=== PATIENT | male | born 1935 | race Caucasian/White ===

== ENCOUNTER 2018-02-20 10:53 | Inpatient (IN) ==
--- NOTE | 2018-02-20 11:19 | ED ---
HPI General Chief Complaint: Shortness of Breath/Dyspnea Stated Complaint: sob Time Seen by Provider: 02/20/18 11:07 Source: patient Mode of arrival: ambulatory Limitations: no limitations History of Present Illness The patient is a 82-year-old male who presents to the emergency department for cough and cold symptoms of 4 days duration. The patient has a history of sinusitis and has been recently treated for sinusitis with over-the- counter medications. However, the patient states for the last 3-4 days his symptoms have progressed. He now complains of a productive cough producing green sputum, shortness of breath, chest congestion, and chest tightness. The patient has had subjective fevers, took Advil prior to arrival. The patient denies any chronic medical problems and is followed by his primary physician at the [place] [facility]. The patient did recently travel to [place] and back over the but denies any known history of pulmonary embolism, DVT, or significant lower extremity edema. Patient denies any known history of A. fib, COPD, or CHF. The patient quit smoking 40 years ago and is an avid runner. Symptoms are moderate and progressive. Patient does complain of mild facial congestion over the sinuses which is chronic for him as well as postnasal drip. MD Complaint: Reports shortness of breath Onset (ago): day(s) Context: Reports recent illness Severity: moderate Consistency/Duration: progressively worsening Relieving factors: nothing Exacerbating factors: exertion and coughing Associated symptoms: Reports chest pain, cough, sputum production and chest congestion Treatment prior to arrival: Reports none Related Data Home oxygen amount: none Home Medications Medication Instructions Recorded Confirmed fluticasone [Flonase Allergy 0 puff INTRANASAL WEEKLY PRN 02/20/18 02/20/18 Relief] ipratropium bromide 2 spray INTRANASAL BID 02/20/18 02/20/18 ipratropium bromide [Atrovent HFA] 1 puff INHALATION Q6H 02/20/18 02/20/18 Allergies Allergy/AdvReac Type Severity Reaction Status Date / Time No Known Allergies Allergy Verified 02/20/18 10:55 Review of Systems ROS: all other systems reviewed are negative [facility] Medical History Medical History Sinusitis (Acute) Surgical History Surgical History H/O knee surgery (Acute) H/O submucous nasal surgery (Acute) History of abdominal surgery (Acute) History of nasal septoplasty (Acute) Family History Family History Other Family history non-contributory Social History Social History Substance History: No History of Abuse Second Hand Smoke Exposure: No Smoking Status: Former smoker Tobacco Type: Cigarettes How Often Do You Have a Drink Containing Alcohol: 2 to 4 times a month Recent Travel in [facility] within the Last 8 Weeks: Yes Recent Out of Country Travel within the Last 8 Weeks: No Exam Narrative Exam Narrative: GENERAL: Awake, alert, pleasant 82-year-old male who appears his stated age and is in no acute respiratory distress. SKIN: Focused skin assessment warm/dry. HEAD: Atraumatic. Normocephalic. EYES: Pupils equal and round. No scleral icterus. No injection or drainage. ENT: No nasal bleeding or discharge. Mucous membranes pink and moist. Cobblestoning in the posterior oropharynx. No significant tenderness of the maxillary or frontal sinuses. NECK: Trachea midline. No JVD. CARDIOVASCULAR: Irregularly irregular with a heart rate in the 120s. RESPIRATORY: No accessory muscle use. Diffuse wheezing noted. GASTROINTESTINAL: Abdomen soft, non-tender, nondistended. MUSCULOSKELETAL: No obvious deformities. No clubbing. No cyanosis. No edema. NEUROLOGICAL: Awake and alert. No obvious cranial nerve deficits. Motor grossly within normal limits. Normal speech. PSYCHIATRIC: Appropriate mood and affect; insight and judgment normal. Course Initial Documented Vital Signs Temperature 97.9 F 02/20/18 10:55 Pulse Rate 134 H 02/20/18 10:55 Respiratory Rate 24 02/20/18 10:55 Blood Pressure 115/69 02/20/18 10:55 Pulse Oximetry 95 02/20/18 10:55 Last Documented Vital Signs Temperature 99 F 02/20/18 20:00 Pulse Rate 85 02/20/18 20:00 Respiratory Rate 20 02/20/18 20:00 Blood Pressure 118/59 L 02/20/18 20:00 Pulse Oximetry 93 L 02/20/18 20:00 Medical Decision Making [facility] Narrative Medical decision making narrative: IV was established, labs are drawn and sent, and the patient was placed on cardiac telemetry monitoring and continuous pulse oximetry monitoring. EKG was ordered and interpreted. Chest x-ray was obtained. D-dimer, lactic acid, CPK, and troponin were sent to lab. The patient was administered 1 DuoNeb. Chest x-ray reveals bilateral pneumonia. D- dimer was positive at 1.4, therefore, CT pulmonary angiogram was ordered, revealing bilateral pneumonia and the patient was treated with Rocephin and Zithromax for community-acquired pneumonia. CT pulmonary angiogram did not reveal any evidence of pulmonary embolism. The patient does have new onset atrial fibrillation with RVR and bilateral pneumonia, therefore, will be admitted. The patient may benefit from IV antibiotics and echocardiogram with considerations for anticoagulation including aspirin or the novel oral anticoagulants. I discussed the findings with the patient who is comfortable with this plan of care and disposition. The patient[facility] primary [facility] at [facility] Medical Screen Exam Complete: Yes Emergency Medical Condition: Yes Lab Data Lab results reviewed: Yes I reviewed the patient's lab results. Result diagrams: 02/20/18 11:20 02/20/18 11:20 Lab Results 02/20/18 02/20/18 02/20/18 Range/Units 11:20 11:20 11:20 CBC w Diff Auto diff final WBC 10.5 (4.0-11.0) th/mm3 RBC 4.24 L (4.50-5.90) mil/mm3 Hgb 13.5 (13.0-17.0) gm/dL Hct 39.9 (39.0-51.0) % MCV 94.3 (80.0-100.0) fL MCH 31.8 (27.0-34.0) pg MCHC 33.7 (32.0-36.0) % RDW 12.8 (11.6-17.2) % Plt Count 244 (150-450) th/mm3 MPV 11.7 H (7.0-11.0) fL Neut % (Auto) 81.9 H (16.0-70.0) % Lymph % (Auto) 6.2 L (9.0-44.0) % Walker % (Auto) 11.1 H (0.0-8.0) % Eos % (Auto) 0.4 (0.0-4.0) % Baso % (Auto) 0.4 (0.0-2.0) % Neut # (Auto) 8.6 H (1.8-7.7) th/mm3 Lymph # (Auto) 0.7 L (1.0-4.8) th/mm3 Walker # (Auto) 1.2 H (0.0-0.9) th/mm3 Eos # (Auto) 0.0 (0.0-0.4) th/mm3 Baso # (Auto) 0.0 (0.0-0.2) th/mm3 WBC Differential . Differential Comment . PT 9.8 (9.8-11.6) sec INR 1.0 Ratio APTT 32.3 H (23.4-31.7) sec D-Dimer Quant (PE/DVT) 1.40 H (0.00-0.50) mg/L FEU Sodium 138 (136-145) meq/L Potassium 3.5 (3.5-5.1) meq/L Chloride 102 (98-107) meq/L Carbon Dioxide 27.2 (21.0-32.0) meq/L Anion Gap 9 (5-15) meq/L BUN 13 (7-18) mg/dL Creatinine 1.40 H (0.60-1.30) mg/dL Estimated GFR 48 L (>89) mL/min Random Glucose 140 H (74-106) mg/dL Lactic Acid (0.4-2.0) mmol/L Calcium 8.9 (8.5-10.1) mg/dL Magnesium 2.0 (1.5-2.5) mg/dL Total Bilirubin 1.1 H (0.2-1.0) mg/dL AST 33 (15-37) U/L ALT 37 (12-78) U/L Alkaline Phosphatase 72 (45-117) U/L Total Creatine Kinase 166 (39-308) U/L CK-MB (CK-2) 5.0 H (0.5-3.6) ng/mL Troponin I Less than 0.02 L (0.02-0.05) ng/mL B-Natriuretic Peptide (0-100) pg/mL Total Protein 7.3 (6.4-8.2) g/dL Albumin 3.0 L (3.4-5.0) g/dL TSH (0.358-3.740) uIU/mL Urine Color (Yellw/Straw) Urine Clarity (Clear) Urine pH (5.0-8.5) Ur Specific Polk (1.002-1.035) Urine Protein (Neg-Trace) mg/dL Urine Glucose (UA) (Negative) mg/dL Urine Ketones (Negative) mg/dL Urine Occult Blood (Negative) Urine Nitrate (Negative) Urine Bilirubin (Negative) Urine Urobilinogen (Less than 2) mg/dL Ur Leukocyte Esterase (Negative) Urine RBC (0-3) /hpf Urine WBC (0-5) /hpf Ur Squamous Epith Cells (0-5) /hpf Amorphous Sediment (None) /hpf Urine Bacteria (None) /hpf Hyaline Casts (0-3) /lpf Granular Casts (None) /lpf Micro UA Comment Ur Microscopic Review Urine Culture Comments 02/20/18 02/20/18 02/20/18 Range/Units 11:20 11:20 11:20 CBC w Diff WBC (4.0-11.0) th/mm3 RBC (4.50-5.90) mil/mm3 Hgb (13.0-17.0) gm/dL Hct (39.0-51.0) % MCV (80.0-100.0) fL MCH (27.0-34.0) pg MCHC (32.0-36.0) % RDW (11.6-17.2) % Plt Count (150-450) th/mm3 MPV (7.0-11.0) fL Neut % (Auto) (16.0-70.0) % Lymph % (Auto) (9.0-44.0) % Walker % (Auto) (0.0-8.0) % Eos % (Auto) (0.0-4.0) % Baso % (Auto) (0.0-2.0) % Neut # (Auto) (1.8-7.7) th/mm3 Lymph # (Auto) (1.0-4.8) th/mm3 Walker # (Auto) (0.0-0.9) th/mm3 Eos # (Auto) (0.0-0.4) th/mm3 Baso # (Auto) (0.0-0.2) th/mm3 WBC Differential Differential Comment PT (9.8-11.6) sec INR Ratio APTT (23.4-31.7) sec D-Dimer Quant (PE/DVT) (0.00-0.50) mg/L FEU Sodium (136-145) meq/L Potassium (3.5-5.1) meq/L Chloride (98-107) meq/L Carbon Dioxide (21.0-32.0) meq/L Anion Gap (5-15) meq/L BUN (7-18) mg/dL Creatinine (0.60-1.30) mg/dL Estimated GFR (>89) mL/min Random Glucose (74-106) mg/dL Lactic Acid 2.0 (0.4-2.0) mmol/L Calcium (8.5-10.1) mg/dL Magnesium (1.5-2.5) mg/dL Total Bilirubin (0.2-1.0) mg/dL AST (15-37) U/L ALT (12-78) U/L Alkaline Phosphatase (45-117) U/L Total Creatine Kinase (39-308) U/L CK-MB (CK-2) (0.5-3.6) ng/mL Troponin I (0.02-0.05) ng/mL B-Natriuretic Peptide 95 (0-100) pg/mL Total Protein (6.4-8.2) g/dL Albumin (3.4-5.0) g/dL TSH 2.210 (0.358-3.740) uIU/mL Urine Color (Yellw/Straw) Urine Clarity (Clear) Urine pH (5.0-8.5) Ur Specific Polk (1.002-1.035) Urine Protein (Neg-Trace) mg/dL Urine Glucose (UA) (Negative) mg/dL Urine Ketones (Negative) mg/dL Urine Occult Blood (Negative) Urine Nitrate (Negative) Urine Bilirubin (Negative) Urine Urobilinogen (Less than 2) mg/dL Ur Leukocyte Esterase (Negative) Urine RBC (0-3) /hpf Urine WBC (0-5) /hpf Ur Squamous Epith Cells (0-5) /hpf Amorphous Sediment (None) /hpf Urine Bacteria (None) /hpf Hyaline Casts (0-3) /lpf Granular Casts (None) /lpf Micro UA Comment Ur Microscopic Review Urine Culture Comments 02/20/18 Range/Units 18:02 CBC w Diff WBC (4.0-11.0) th/mm3 RBC (4.50-5.90) mil/mm3 Hgb (13.0-17.0) gm/dL Hct (39.0-51.0) % MCV (80.0-100.0) fL MCH (27.0-34.0) pg MCHC (32.0-36.0) % RDW (11.6-17.2) % Plt Count (150-450) th/mm3 MPV (7.0-11.0) fL Neut % (Auto) (16.0-70.0) % Lymph % (Auto) (9.0-44.0) % Walker % (Auto) (0.0-8.0) % Eos % (Auto) (0.0-4.0) % Baso % (Auto) (0.0-2.0) % Neut # (Auto) (1.8-7.7) th/mm3 Lymph # (Auto) (1.0-4.8) th/mm3 Walker # (Auto) (0.0-0.9) th/mm3 Eos # (Auto) (0.0-0.4) th/mm3 Baso # (Auto) (0.0-0.2) th/mm3 WBC Differential Differential Comment PT (9.8-11.6) sec INR Ratio APTT (23.4-31.7) sec D-Dimer Quant (PE/DVT) (0.00-0.50) mg/L FEU Sodium (136-145) meq/L Potassium (3.5-5.1) meq/L Chloride (98-107) meq/L Carbon Dioxide (21.0-32.0) meq/L Anion Gap (5-15) meq/L BUN (7-18) mg/dL Creatinine (0.60-1.30) mg/dL Estimated GFR (>89) mL/min Random Glucose (74-106) mg/dL Lactic Acid (0.4-2.0) mmol/L Calcium (8.5-10.1) mg/dL Magnesium (1.5-2.5) mg/dL Total Bilirubin (0.2-1.0) mg/dL AST (15-37) U/L ALT (12-78) U/L Alkaline Phosphatase (45-117) U/L Total Creatine Kinase (39-308) U/L CK-MB (CK-2) (0.5-3.6) ng/mL Troponin I (0.02-0.05) ng/mL B-Natriuretic Peptide (0-100) pg/mL Total Protein (6.4-8.2) g/dL Albumin (3.4-5.0) g/dL TSH (0.358-3.740) uIU/mL Urine Color [facility] (Yellw/Straw) Urine Clarity Cloudy H (Clear) Urine pH 5.5 (5.0-8.5) Ur Specific Polk Less/equal 1.005 (1.002-1.035) Urine Protein 100 H (Neg-Trace) mg/dL Urine Glucose (UA) Negative (Negative) mg/dL Urine Ketones 15 H (Negative) mg/dL Urine Occult Blood Trace (Negative) Urine Nitrate Negative (Negative) Urine Bilirubin Negative (Negative) Urine Urobilinogen 0.2 (Less than 2) mg/dL Ur Leukocyte Esterase Negative (Negative) Urine RBC 0-3 (0-3) /hpf Urine WBC 6-8 H (0-5) /hpf Ur Squamous Epith Cells Greater than 10 H (0-5) /hpf Amorphous Sediment Moderate H (None) /hpf Urine Bacteria Occasional H (None) /hpf Hyaline Casts 0-3 (0-3) /lpf Granular Casts 1-3 H (None) /lpf Micro UA Comment Culture not ind Ur Microscopic Review Microscopic reviewed Urine Culture Comments Culture not ind Imaging Data Radiologist's impression: Chest X-Ray 02/20/18 11:14 CONCLUSION: Patchy bilateral interstitial infiltrates in both lower lung suggestive of pneumonia. Chest CTA 02/20/18 12:28 CONCLUSION: 1. No evidence of pulmonary embolism. 2. Focal alveolar consolidations are noted involving the lingula of the left upper lobe as well as the right middle lobe consistent with probable pneumonia. Scattered reticular nodular infiltrates are also noted throughout the upper lobes bilaterally. Minimal scattered reticular nodular infiltrates are also noted within the posterior aspects of the lower lobes. 3. Bronchiectasis is noted bilaterally. 4. Coronary artery calcifications. 5. Degenerative changes are noted throughout the thoracic spine. ECG Data EKG Prior to Arrival: No Attestation: I personally reviewed and interpreted this ECG as follows: Interpretation: EKG reveals atrial fibrillation with RVR, rate 110. RSR prime in V1 with QRS of 95 ms consistent with incomplete right bundle branch block. Nonspecific ST changes. Inverted T wave in lead III. Discharge Plan Discharge Disposition Patient Disposition: 30 Still Patient Discharge Details Diagnosis: Community acquired pneumonia, Atrial fibrillation with RVR Physicians Team ED Provider: Israel Cantu Primary Care Provider: [facility],Physician 's Attending Provider: Jas Tom Other Providers: Raimundo Holguin Status ED Status: Left Department Discharge Information Discharge Date/Time: 02/20/18 15:26
[2018-02-20 12:17] LABS: Chloride 102 meq/L (98-107); Potassium 3.5 meq/L (3.5-5.1); Sodium 138 meq/L (136-145)
[2018-02-20 12:18] LABS: Baso % (Auto) 0.4 % (0.0-2.0); Eos % (Auto) 0.4 % (0.0-4.0); Hematocrit 39.9 % (39.0-51.0); Hemoglobin 13.5 gm/dL (13.0-17.0); Lymph # (Auto) 0.7 th/mm3 (1.0-4.8); Lymph % (Auto) 6.2 % (9.0-44.0); Mean Corpuscular HGB Conc 33.7 % (32.0-36.0); Mean Corpuscular Hemoglobin 31.8 pg (27.0-34.0); Mean Corpuscular Volume 94.3 fL (80.0-100.0); Mean Platelet Volume 11.7 fL (7.0-11.0); Mono # (Auto) 1.2 th/mm3 (0.0-0.9); Mono % (Auto) 11.1 % (0.0-8.0); Neut # (Auto) 8.6 th/mm3 (1.8-7.7); Neut % (Auto) 81.9 % (16.0-70.0); Platelet Count 244 th/mm3 (150-450); Red Blood Count 4.24 mil/mm3 (4.50-5.90); Red Cell Distribution Width 12.8 % (11.6-17.2); White Blood Count 10.5 th/mm3 (4.0-11.0)
--- NOTE | 2018-02-20 12:19 | XR ---
EXAM DATE: 02/20/2018 12:14 PM EST AGE/SEX: 82 years / Male INDICATIONS: Cough, short of breath CLINICAL DATA: This is the patient's initial encounter. Patient reports that signs and symptoms have been present for 4 - 6 days and indicates a pain score of 8/10. MEDICAL/SURGICAL HISTORY: None. None. COMPARISON: No prior exams available for comparison. FINDINGS: There is some patchy interstitial infiltrates in both lower lungs. The upper lungs are grossly clear. The heart size is enlarged but stable. There are no effusions or pulmonary edema. The bony structure s are grossly intact. CONCLUSION: Patchy bilateral interstitial infiltrates in both lower lung suggestive of pneumonia. Electronically signed by: Tang Smith MD 02/20/2018 12:17 PM EST
[2018-02-20] MEDS ORDERED: Azithromycin Inj 500 MG in Sodium Chlor 0.9% Inj 250 ML IV.SIG ONE (12:20)
[2018-02-20 12:21] LABS: Anion Gap 9 meq/L (5-15); Blood Urea Nitrogen 13 mg/dL (7-18); Calcium 8.9 mg/dL (8.5-10.1); Carbon Dioxide 27.2 meq/L (21.0-32.0); Glucose,Random 140 mg/dL (74-106)
[2018-02-20 12:22] LABS: Activated Partial Thrombo Time 32.3 sec (23.4-31.7); Prothrombin Time 9.8 sec (9.8-11.6)
[2018-02-20 12:24] LABS: Alanine Aminotransferase 37 U/L (12-78); Aspartate Aminotransferase 33 U/L (15-37); Glomerular Filtration Rate 48 mL/min (>89)
[2018-02-20 12:25] LABS: D-Dimer 1.4 mg/L FEU (0.00-0.50)
[2018-02-20 12:26] LABS: Total Protein 7.3 g/dL (6.4-8.2)
[2018-02-20 12:27] LABS: Alkaline Phosphatase 72 U/L (45-117); Creatine Kinase 166 U/L (39-308)
--- NOTE | 2018-02-20 13:55 | CT ---
EXAM DATE: 02/20/2018 1:48 PM EST AGE/SEX: 82 years / Male INDICATIONS: Short of breath. CLINICAL DATA: This is the patient's initial encounter. Patient reports that signs and symptoms have been present for 4 - 6 days and indicates a pain score of 0/10. MEDICAL/SURGICAL HISTORY: None. . Knee surgery. nasal surgery. Abdomen surgery. RADIATION DOSE: 13.41 CTDI (mGy) COMPARISON: No prior exams available for comparison. TECHNIQUE: Volumetric scanning was performed using a multi-row detector CT scanner during bolus infu freddy of 65 ml Omnipaque 350 (iohexol) nonionic water-soluble contrast as a single exam dose. The brett a was post processed with a variety of visualization algorithms including full volume maximum intensi ty projection and sliding thin slab reformation. Using automated exposure control and adjustment of t he mA and/or kV according to patient size, radiation dose was kept as low as reasonably achievable to obtain optimal diagnostic quality images. DICOM format image data is available electronically for r eview and comparison. FINDINGS: Pulmonary Arteries: No filling defects are seen in the pulmonary arteries out to the subsegmental ve ssels. The left and right pulmonary arteries are normal in diameter. Lung: Focal alveolar consolidations are noted involving the lingula of the left upper lobe as well a s the right middle lobe consistent with probable pneumonia. Scattered reticular nodular infiltrates a re also noted throughout the upper lobes bilaterally. Minimal scattered reticular nodular infiltrates are also noted within the posterior aspects of the lower lobes. Bronchiectasis is noted bilaterally. No pulmonary mass or nodule is noted. Mediastinum: No evidence of mediastinal or hilar adenopathy. Coronary artery calcifications are note d. Other: The axilla is unremarkable. Degenerative changes are noted throughout the thoracic spine. CONCLUSION: 1. No evidence of pulmonary embolism. 2. Focal alveolar consolidations are noted involving the lingula of the left upper lobe as well as t he right middle lobe consistent with probable pneumonia. Scattered reticular nodular infiltrates are also noted throughout the upper lobes bilaterally. Minimal scattered reticular nodular infiltrates ar e also noted within the posterior aspects of the lower lobes. 3. Bronchiectasis is noted bilaterally. 4. Coronary artery calcifications. 5. Degenerative changes are noted throughout the thoracic spine. Electronically signed by: Jas Robb MD 02/20/2018 1:53 PM EST
--- NOTE | 2018-02-20 15:18 | P.HP ---
History of Present Illness Primary Care Physician: [facility] Chief Complaint: Upper respiratory complaints History of Present Illness: This is an 82-year-old male patient with a known medical history of sinusitis who presented to the ED with complaints of upper respiratory symptoms including worsening cold symptoms, including shortness of breath with cough, green phlegm and chest tightness over the past 3 days. Patient states he has had subjective fevers at home and took Advil prior to arrival. It should be noted that he tok a recent trip to [place] over the and states he may have caught something from the airplane. He denies any history of atrial fibrillation, COPD, CHF, pulmonary embolism or DVT. Prior to this cold he is very healthy, an avid runner, and denies any significant medical problems except for sinus problems including a history of septoplasty. At the time of assessment patient is awake and alert, states he feels mildly improved, but still complains of continued cough with green phlegm and shortness of breath with exertion. He also states that he is developed cold sores on his upper and lower lip, does admit to having these in the past although has not had an outbreak for a while. On exam patient is in a regular rate. We will continue cardiac telemetry overnight. - Diagnosis (1) Bilateral pneumonia (2) Community acquired pneumonia (3) Atrial fibrillation with RVR Inpatient Certification: I certify that the inpatient services were ordered in accordance with Medicare regulations governing the order. This includes certification that hospital inpatient services are reasonable and necessary and in the case of services not specified as inpatient-only under 42 CFR 419.22(n), that they are appropriately provided as inpatient services in accordance to with the 2-midnight benchmark under 43 CFR 412.3(e) Estimated Total Length of Stay (Days): 3 Review of Systems All other systems reviewed negative except as stated in HPI PMFSH - History History Provided By: Patient - Medical History Medical History: Medical History (Last Reviewed 02/20/18 @ 16:42 by Bhargavi Rainey) Sinusitis - Surgical History Surgical History: Surgical History (Last Updated 02/20/18 @ 16:43 by Bhargavi Rainey) H/O knee surgery H/O submucous nasal surgery History of abdominal surgery History of nasal septoplasty - Family History Family History: Family History (Last Updated 02/20/18 @ 16:43 by Bhargavi Rainey) Other Family history non-contributory - Social History I have reviewed the patient's Social History: Yes - Tobacco History Second Hand Smoke Exposure: No Tobacco Use In Past 30 Days: No Smoking Status: Former smoker Tobacco Type: Cigarettes - Alcohol History How Often Do You Have a Drink Containing Alcohol: 2 to 4 times a month - Travel History Recent Travel in the [place] Within the Last 8 Weeks: Yes Recent Travel Out of the Country Within the Last 8 Weeks: No - Immunization History Tetanus Immunization: <5 Years Medications and Allergies Allergies Allergy/AdvReac Type Severity Reaction Status Date / Time No Known Allergies Allergy Verified 02/20/18 10:55 Home Medications Medication Instructions Recorded Confirmed Type fluticasone [Flonase Allergy 0 puff INTRANASAL WEEKLY PRN 02/20/18 02/20/18 History Relief] ipratropium bromide 2 spray INTRANASAL BID 02/20/18 02/20/18 History ipratropium bromide [Atrovent HFA] 1 puff INHALATION Q6H 02/20/18 02/20/18 History Exam Vital signs: Vital Signs 02/20/18 10:55 02/20/18 11:13 02/20/18 11:14 Temperature 97.9 F Pulse Rate 134 H 115 H Respiratory Rate 24 20 Blood Pressure 115/69 Pulse Oximetry 95 95 95 02/20/18 11:27 02/20/18 12:02 02/20/18 13:31 Temperature 99 F Pulse Rate 105 H 104 H 109 H Respiratory Rate 20 22 18 Blood Pressure 108/65 107/69 Pulse Oximetry 97 97 02/20/18 15:10 Temperature Pulse Rate 84 Respiratory Rate 22 Blood Pressure 121/74 Pulse Oximetry 96 Intake & Output 02/19/18 02/20/18 02/20/18 18:59 06:59 18:59 Intake Total 350 / 350 Balance 350 / 350 Weight 73.7 kg Intake: IV 350 / 350 Azithromycin Inj 500 MG In NS 250 / 250 Inj 250 ML @ 250 mls/hr IV.SIG ONCE ONE Rx#:[id number] Rocephin Inj 1,000 MG In NS Inj 100 / 100 100 ML @ 200 mls/hr IV.SIG ONCE ONE Rx#:[id number] Narrative: GENERAL: Well-developed, well-nourished patient in NAD. SKIN: Cool and dry. No rash. HEAD: Normocephalic. Atraumatic. EYES: Pupils equal and round. No scleral icterus. No injection or drainage. ENT: No nasal bleeding or discharge. Mucous membranes pink and moist. NECK: Supple. Trachea midline. CARDIOVASCULAR: Regular rate and rhythm. S1, S2 noted. No murmur appreciated. RESPIRATORY: Diffuse rhonchi especially in the posterior lower bases. Breath sounds equal bilaterally. GASTROINTESTINAL: Abdomen soft, non-tender, nondistended. Normoactive bowel sounds x4. MUSCULOSKELETAL: No obvious deformities. Extremities without clubbing, cyanosis , or edema. NEUROLOGICAL: Awake and alert. No obvious cranial nerve deficits. Motor grossly within normal limits. 5/5 muscle strength in bilateral upper and lower extremities. Normal speech. PSYCHIATRIC: Appropriate mood and affect; insight and judgment normal. Results - Labs CBC & Chem 7: 02/20/18 11:20 02/20/18 11:20 Labs: Laboratory Results - last 24 hr 02/20/18 02/20/18 02/20/18 11:20 11:20 11:20 CBC w Diff Auto diff final WBC 10.5 RBC 4.24 L Hgb 13.5 Hct 39.9 MCV 94.3 MCH 31.8 MCHC 33.7 RDW 12.8 Plt Count 244 MPV 11.7 H Neut % (Auto) 81.9 H Lymph % (Auto) 6.2 L Whiteside % (Auto) 11.1 H Eos % (Auto) 0.4 Baso % (Auto) 0.4 Neut # (Auto) 8.6 H Lymph # (Auto) 0.7 L Whiteside # (Auto) 1.2 H Eos # (Auto) 0.0 Baso # (Auto) 0.0 WBC Differential . Differential Comment . PT 9.8 INR 1.0 APTT 32.3 H D-Dimer Quant (PE/DVT) 1.40 H Sodium 138 Potassium 3.5 Chloride 102 Carbon Dioxide 27.2 Anion Gap 9 BUN 13 Creatinine 1.40 H Estimated GFR 48 L Random Glucose 140 H Lactic Acid Calcium 8.9 Magnesium 2.0 Total Bilirubin 1.1 H AST 33 ALT 37 Alkaline Phosphatase 72 Total Creatine Kinase 166 CK-MB (CK-2) 5.0 H Troponin I Less than 0.02 L B-Natriuretic Peptide Total Protein 7.3 Albumin 3.0 L 02/20/18 02/20/18 11:20 11:20 CBC w Diff WBC RBC Hgb Hct MCV MCH MCHC RDW Plt Count MPV Neut % (Auto) Lymph % (Auto) Whiteside % (Auto) Eos % (Auto) Baso % (Auto) Neut # (Auto) Lymph # (Auto) Whiteside # (Auto) Eos # (Auto) Baso # (Auto) WBC Differential Differential Comment PT INR APTT D-Dimer Quant (PE/DVT) Sodium Potassium Chloride Carbon Dioxide Anion Gap BUN Creatinine Estimated GFR Random Glucose Lactic Acid 2.0 Calcium Magnesium Total Bilirubin AST ALT Alkaline Phosphatase Total Creatine Kinase CK-MB (CK-2) Troponin I B-Natriuretic Peptide 95 Total Protein Albumin - Imaging Impressions Chest X-Ray 02/20/18 11:14 CONCLUSION: Patchy bilateral interstitial infiltrates in both lower lung suggestive of pneumonia. Chest CTA 02/20/18 12:28 CONCLUSION: 1. No evidence of pulmonary embolism. 2. Focal alveolar consolidations are noted involving the lingula of the left upper lobe as well as the right middle lobe consistent with probable pneumonia. Scattered reticular nodular infiltrates are also noted throughout the upper lobes bilaterally. Minimal scattered reticular nodular infiltrates are also noted within the posterior aspects of the lower lobes. 3. Bronchiectasis is noted bilaterally. 4. Coronary artery calcifications. 5. Degenerative changes are noted throughout the thoracic spine. Caprini VTE Risk Assessment Caprini VTE Risk Assessment: Moderate/High Risk (score >= 2) Caprini Risk Assessment Model: Point Value = 1 Point Value = 2 Point Value = 3 Point Value = 5 Age 41-60 Minor surgery BMI > 25 kg/m2 Swollen legs Varicose veins or History of unexplained or recurrent spontaneous Oral contraceptives or hormone replacement Sepsis (< 1 month) Serious lung disease, including pneumonia (< 1 month) Abnormal pulmonary function Acute myocardial infarction Congestive heart failure (< 1 month) History of inflammatory bowel disease Medical patient at bed rest Age 61-74 Arthroscopic surgery Major open surgery (> 45 min) Laparoscopic surgery (> 45 min) Malignancy Confined to bed (> 72 hours) Immobilizing plaster cast Central venous access Age >= 75 History of VTE Family history of VTE Factor V Leiden Prothrombin [id number] Lupus anticoagulant Anticardiolipin antibodies Elevated serum homocysteine Heparin-induced thrombocytopenia Other congenital or acquired thrombophilia Stroke (< 1 month) Elective arthroplasty Hip, pelvis, or leg fracture Acute spinal cord injury (< 1 month) Prophylaxis Regimen: Total Risk Factor Score Risk Level Prophylaxis Regimen 0-1 Low Early ambulation 2 Moderate Order ONE of the following: *Sequential Compression Device (SCD) *Heparin 5000 units SQ BID 3-4 Higher Order ONE of the following medications: *Heparin 5000 units SQ TID *Enoxaparin/Lovenox 40 mg SQ daily (WT < 150 kg, CrCl > 30 mL/min) *Enoxaparin/Lovenox 30 mg SQ daily (WT < 150 kg, CrCl > 10-29 mL/min) *Enoxaparin/Lovenox 30 mg SQ BID (WT < 150 kg, CrCl > 30 mL/min) AND/OR *Sequential Compression Device (SCD) 5 or more Highest Order ONE of the following medications: *Heparin 5000 units SQ TID (Preferred with Epidurals) *Enoxaparin/Lovenox 40 mg SQ daily (WT < 150 kg, CrCl > 30 mL/min) *Enoxaparin/Lovenox 30 mg SQ daily (WT < 150 kg, CrCl > 10-29 mL/min) *Enoxaparin/Lovenox 30 mg SQ BID (WT < 150 kg, CrCl > 30 mL/min) AND *Sequential Compression Device (SCD) Assessment and Plan - Assessment (1) Bilateral pneumonia Code(s): J18.9 - Pneumonia, unspecified organism Status: Acute (2) Community acquired pneumonia Code(s): J18.9 - Pneumonia, unspecified organism Status: Acute (3) Atrial fibrillation with RVR Code(s): I48.91 - Unspecified atrial fibrillation Status: Acute - Plan This is an 82-year-old male patient who presented to the ED with: Community-acquired bilateral pneumonia -Patient reports worsening cold symptoms including increasing subjective fevers , generalized weakness, productive cough with green phlegm and shortness of breath. -CBC with white blood cell 10.5. No fever since presentation. Lactic acid 2.0. Monitor for infection. -A chest CT was done secondary to elevated d-dimer, reviewed showing bilateral pneumonia. Ruled out PE. -Was given IV ceftriaxone and azithromycin in ED. Will continue. -Blood cultures pending, follow. -Check UA and legionella. Follow. -Will redraw labs in AM. Follow. -PT evaluation ordered and pending. -Supplemental O2 as needed, comfortable on RA. -Duonebs scheduled and as needed. Add incentive spirometry. -Supportive care. Paroxysmal atrial fibrillation, new onset, likely secondary to acute infection -EKG reviewed showing Atrial fibrillation in RVR. Currently in NSR on assessment and on monitor. -Patient denies ever having atrial fibrillation in the past. -This paroxysmal response is likely related to the acute bilateral pneumonia infection. -Spoke to patient at length regarding the risks and benefits of anticoagulation. Patient's CHADSVAS is a 2. -Requesting to get cardiology input regarding anticoagulation. Will request cardiology input, recommendations pending. -Continue to monitor overnight on telemetry. 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 -Acyclovir ointment ordered. -Assess response. DVT Prophylaxis: SCDs, Heparin. (2) Community acquired pneumonia Qualifiers: Laterality: unspecified laterality Qualified Code(s): J18.9 - Pneumonia, unspecified organism
[2018-02-20] MEDS ORDERED: Bisacodyl 10 MG Supp RECTAL PRN (16:34)
[2018-02-20] MEDS ORDERED: Acetaminophen 325 MG Tablet PO PRN (16:34)
[2018-02-20] MEDS: Sod Chloride 0.9% Inj 1,000 ML IV.CONT SCH (16:50)
[2018-02-20] MEDS: Tiotropium Bromide 18 MCG/ACT Inhaler INH SCH (17:18)
[2018-02-20] MEDS ORDERED: Heparin - SQ 10,000 UNITS/ML Vial SQ SCH (18:00)
[2018-02-20 18:17] LABS: Bilirubin,Urine Negative (Negative); Clarity,Urine Cloudy (Clear); Glucose,Urine (UA) Negative (Negative); Leukocyte Esterase,Urine Negative (Negative); Nitrite,Urine Negative (Negative); PH,Urine 5.5 (5.0-8.5); Specific Gravity,Urine Less/Equal 1.005 (1.002-1.035); Urobilinogen,Urine 0.2 mg/dL (Less than 2)
[2018-02-20 18:18] LABS: Color,Urine Orange (Yellw/Straw)
[2018-02-20 18:20] LABS: RBC,Urine 0-3 /hpf (0-3)
[2018-02-20 18:21] LABS: Amorphous Sediment,Urine Moderate /hpf; Bacteria,Urine Occasional /hpf; Hyaline Casts,Urine 0-3 /lpf (0-3); Squamous Epithelial Cell,Urine Greater than 10 /hpf (0-5)
[2018-02-20] MEDS: guaiFENesin 600 MG ER Tablet PO SCH (20:16)
--- NOTE | 2018-02-20 21:33 | MB ---
cc: Raimundo Holguin MD DATE: 02/20/2018 HISTORY OF PRESENT ILLNESS: Alden is a very pleasant 81-year-old gentleman followed at the [facility], who presented with weakness, fatigue, fever and dyspnea and found to have bilateral pneumonia. He otherwise denies any fevers, chills, cough, GI or bleeding, PND, orthopnea, syncope, or dizziness. PAST MEDICAL HISTORY: As per history of present illness. He has a history of sinusitis, knee surgery, submucosal nasal surgery, abdominal surgery, nasal septoplasty. ALLERGIES: NONE. SOCIAL HISTORY: Former smoker. Drinks alcohol 3-4 times a month. MEDICATIONS: In the hospital: 1. Eliquis 5 mg p.o. b.i.d. 2. Azithromycin IV. 3. Ceftriaxone IV. 4. Fluticasone daily per each naris. 5. Guaifenesin 600 b.i.d. 6. Heparin 5000 subcutaneous every 8 hours. 7. Spiriva 18 mcg inhaler. PHYSICAL EXAMINATION: VITAL SIGNS: Temperature 97.3, pulse 81, ranging between 81 and 109, respiratory rate 20, saturations 92% on room air, blood pressure 130/78. GENERAL: He is alert and oriented x 3, in no acute distress. NECK: Supple. No JVD. No bruit. CARDIOVASCULAR: S1, S2. No murmurs, rubs or gallops. LUNGS: Clear to auscultation bilaterally. ABDOMEN: Soft, nontender, nondistended with positive bowel sounds. EXTREMITIES: Lower extremity edema. RADIOLOGY DATA: Chest x-ray is notable for decreased air movement bilaterally at the bases. Chest x-ray shows patchy bilateral interstitial infiltrates in both lower lung suggestive of pneumonia. EKG shows atrial fibrillation at a rate of 111 beats per minute. Repeat EKG shows sinus bradycardia. CT of the chest: No evidence of pulmonary embolism. Focal alveolar consolidations are noted involving the lingula of the left upper lobe as well as the right middle lobe consistent with probable pneumonia. Scattered reticular nodular infiltrates are also noted throughout the upper lobes bilaterally, minimal scattered reticular nodular infiltrates are also noted within the posterior aspects of the lower lobes. bronchiectasis is noted bilaterally coronary artery calcifications degenerative changes are noted throughout the thoracic spine. LABORATORY DATA: Blood cultures are pending. White count 10.5, hemoglobin 13.5, hematocrit 39.9, platelet count is 244. INR is 1.0. Sodium 138, potassium 3.5, chloride 102, bicarbonate 27.2, BUN 13, creatinine 1.40. Troponin less than 0.02. BNP is 95. Total bilirubin is 1.1. TSH is 2.210. DIAGNOSES: 1. Paroxysmal atrial fibrillation. 2. Pneumonia. 3. Acute renal failure. 4. Coronary artery disease. DISCUSSION: The patient's CHADS-VASc score is at least 2. I agree with Eliquis 5 mg b.i.d. I have explained to the patient that an oral anticoagulant agent or Coumadin is indicated. The patient agrees and is willing to take Eliquis 5 mg b.i.d. Denies any history of bleeding or CVA in the past. He is currently bradycardic in sinus rhythm; therefore, we will hold beta blockers or calcium channel blockers. We will discontinue the subcutaneous heparin and follow up with 2-D echo. Regarding his coronary calcifications, I also recommend checking a lipid panel and starting him on a statin if the LDL is above 70. MD TERRA Kenney/javier , 09:00 PM , 09:10 PM
[2018-02-21] MEDS: Sod Chloride 0.9% Inj 1,000 ML IV.CONT SCH ×3 (02:30→22:17)
[2018-02-21 06:06] LABS: Baso % (Auto) 0.3 % (0.0-2.0); Eos # (Auto) 0.1 th/mm3 (0.0-0.4); Hematocrit 33.2 % (39.0-51.0); Hemoglobin 11.3 gm/dL (13.0-17.0); Lymph # (Auto) 1.3 th/mm3 (1.0-4.8); Lymph % (Auto) 13.7 % (9.0-44.0); Mean Corpuscular HGB Conc 34.1 % (32.0-36.0); Mean Corpuscular Volume 93.9 fL (80.0-100.0); Mean Platelet Volume 10.4 fL (7.0-11.0); Mono # (Auto) 1.2 th/mm3 (0.0-0.9); Mono % (Auto) 12.7 % (0.0-8.0); Neut # (Auto) 6.8 th/mm3 (1.8-7.7); Neut % (Auto) 72.3 % (16.0-70.0); Platelet Count 209 th/mm3 (150-450); Red Blood Count 3.54 mil/mm3 (4.50-5.90); Red Cell Distribution Width 13.2 % (11.6-17.2); White Blood Count 9.4 th/mm3 (4.0-11.0)
[2018-02-21 06:23] LABS: Potassium 3.3 meq/L (3.5-5.1)
[2018-02-21 06:27] LABS: Calcium 8.4 mg/dL (8.5-10.1)
[2018-02-21 06:28] LABS: Carbon Dioxide 27.1 meq/L (21.0-32.0)
--- NOTE | 2018-02-21 08:07 | P.PNIM ---
Subjective Interval history: Follow-up bilateral pneumonia and new onset atrial fibrillation. Patient seen and examined, sitting comfortably in no apparent distress. No acute events overnight. He is doing well breathing well. Awaiting echocardiogram and lipid panel today. Eating well without any nausea or vomiting. Vital signs stable. Requesting to speak with CM about prices for anticoagulant on DC. Consulted. Physical Exam Vital signs: Vital Signs 02/20/18 10:55 02/20/18 11:13 02/20/18 11:14 Temperature 97.9 F Pulse Rate 134 H 115 H Respiratory Rate 24 20 Blood Pressure 115/69 Pulse Oximetry 95 95 95 02/20/18 11:27 02/20/18 12:02 02/20/18 13:31 Temperature 99 F Pulse Rate 105 H 104 H 109 H Respiratory Rate 20 22 18 Blood Pressure 108/65 107/69 Pulse Oximetry 97 97 02/20/18 15:10 02/20/18 16:46 02/20/18 19:29 Temperature 97.3 F L Pulse Rate 84 87 81 Respiratory Rate 22 18 20 Blood Pressure 121/74 138/78 Pulse Oximetry 96 95 92 L 02/20/18 20:00 02/21/18 00:00 02/21/18 04:00 Temperature 99 F 99.6 F 98.2 F Pulse Rate 85 78 71 Respiratory Rate 20 20 20 Blood Pressure 118/59 L 116/62 125/70 Pulse Oximetry 93 L 93 L 93 L 02/21/18 07:36 02/21/18 07:37 Temperature Pulse Rate 67 Respiratory Rate 20 Blood Pressure Pulse Oximetry 95 Intake & Output 02/20/18 02/21/18 02/21/18 18:59 06:59 18:59 Intake Total 590 / 590 1240 / 1240 Output Total 1050 / 1050 Balance 590 / 590 190 / 190 Weight 73.7 kg 74.2 kg Intake: IV 350 / 350 1000 / 1000 NS Inj 1,000 ML @ 100 mls/hr IV 1000 / 1000 .CONT .Q10H VIVIANA Rx#:[id number] Azithromycin Inj 500 MG In NS 250 / 250 Inj 250 ML @ 250 mls/hr IV.SIG ONCE ONE Rx#:[id number] Rocephin Inj 1,000 MG In NS Inj 100 / 100 100 ML @ 200 mls/hr IV.SIG ONCE ONE Rx#:[id number] Oral 240 / 240 240 / 240 Output: Urine 1050 / 1050 Narrative: GENERAL: Well-developed, well-nourished patient in NAD. SKIN: Cool and dry. No rash. HEAD: Normocephalic. Atraumatic. EYES: Pupils equal and round. No scleral icterus. No injection or drainage. ENT: No nasal bleeding or discharge. Mucous membranes pink and moist. NECK: Supple. Trachea midline. CARDIOVASCULAR: Regular rate and rhythm. S1, S2 noted. No murmur appreciated. RESPIRATORY: Lung sounds improved today, lower bases with rhonchi noted. Breath sounds equal bilaterally. GASTROINTESTINAL: Abdomen soft, non-tender, nondistended. Normoactive bowel sounds x4. MUSCULOSKELETAL: No obvious deformities. Extremities without clubbing, cyanosis , or edema. NEUROLOGICAL: Awake and alert. No obvious cranial nerve deficits. Motor grossly within normal limits. 5/5 muscle strength in bilateral upper and lower extremities. Normal speech. PSYCHIATRIC: Appropriate mood and affect; insight and judgment normal. Results - Labs CBC & Chem 7: 02/21/18 04:50 02/21/18 04:50 Laboratory Results - last 24 hr 02/20/18 02/20/18 02/20/18 11:20 11:20 11:20 CBC w Diff Auto diff final WBC 10.5 RBC 4.24 L Hgb 13.5 Hct 39.9 MCV 94.3 MCH 31.8 MCHC 33.7 RDW 12.8 Plt Count 244 MPV 11.7 H Neut % (Auto) 81.9 H Lymph % (Auto) 6.2 L Jerome % (Auto) 11.1 H Eos % (Auto) 0.4 Baso % (Auto) 0.4 Neut # (Auto) 8.6 H Lymph # (Auto) 0.7 L Jerome # (Auto) 1.2 H Eos # (Auto) 0.0 Baso # (Auto) 0.0 WBC Differential . Differential Comment . PT 9.8 INR 1.0 APTT 32.3 H D-Dimer Quant (PE/DVT) 1.40 H Sodium 138 Potassium 3.5 Chloride 102 Carbon Dioxide 27.2 Anion Gap 9 BUN 13 Creatinine 1.40 H Estimated GFR 48 L Random Glucose 140 H Lactic Acid Calcium 8.9 Magnesium 2.0 Total Bilirubin 1.1 H AST 33 ALT 37 Alkaline Phosphatase 72 Total Creatine Kinase 166 CK-MB (CK-2) 5.0 H Troponin I Less than 0.02 L B-Natriuretic Peptide Total Protein 7.3 Albumin 3.0 L TSH Urine Color Urine Clarity Urine pH Ur Specific [place] Urine Protein Urine Glucose (UA) Urine Ketones Urine Occult Blood Urine Nitrate Urine Bilirubin Urine Urobilinogen Ur Leukocyte Esterase Urine RBC Urine WBC Ur Squamous Epith Cells Amorphous Sediment Urine Bacteria Hyaline Casts Granular Casts Micro UA Comment Ur Microscopic Review Urine Culture Comments 02/20/18 02/20/18 02/20/18 11:20 11:20 11:20 CBC w Diff WBC RBC Hgb Hct MCV MCH MCHC RDW Plt Count MPV Neut % (Auto) Lymph % (Auto) Jerome % (Auto) Eos % (Auto) Baso % (Auto) Neut # (Auto) Lymph # (Auto) Jerome # (Auto) Eos # (Auto) Baso # (Auto) WBC Differential Differential Comment PT INR APTT D-Dimer Quant (PE/DVT) Sodium Potassium Chloride Carbon Dioxide Anion Gap BUN Creatinine Estimated GFR Random Glucose Lactic Acid 2.0 Calcium Magnesium Total Bilirubin AST ALT Alkaline Phosphatase Total Creatine Kinase CK-MB (CK-2) Troponin I B-Natriuretic Peptide 95 Total Protein Albumin TSH 2.210 Urine Color Urine Clarity Urine pH Ur Specific [place] Urine Protein Urine Glucose (UA) Urine Ketones Urine Occult Blood Urine Nitrate Urine Bilirubin Urine Urobilinogen Ur Leukocyte Esterase Urine RBC Urine WBC Ur Squamous Epith Cells Amorphous Sediment Urine Bacteria Hyaline Casts Granular Casts Micro UA Comment Ur Microscopic Review Urine Culture Comments 02/20/18 02/21/18 02/21/18 18:02 04:50 04:50 CBC w Diff Auto diff final WBC 9.4 RBC 3.54 L Hgb 11.3 L D Hct 33.2 L MCV 93.9 MCH 32.0 MCHC 34.1 RDW 13.2 Plt Count 209 MPV 10.4 Neut % (Auto) 72.3 H Lymph % (Auto) 13.7 Jerome % (Auto) 12.7 H Eos % (Auto) 1.0 Baso % (Auto) 0.3 Neut # (Auto) 6.8 Lymph # (Auto) 1.3 Jerome # (Auto) 1.2 H Eos # (Auto) 0.1 Baso # (Auto) 0.0 WBC Differential . Differential Comment . PT INR APTT D-Dimer Quant (PE/DVT) Sodium 139 Potassium 3.3 L Chloride 105 Carbon Dioxide 27.1 Anion Gap 7 BUN 13 Creatinine 1.20 Estimated GFR 58 L Random Glucose 107 H Lactic Acid Calcium 8.4 L Magnesium Total Bilirubin AST ALT Alkaline Phosphatase Total Creatine Kinase CK-MB (CK-2) Troponin I B-Natriuretic Peptide Total Protein Albumin TSH Urine Color [place] H Urine Clarity Cloudy H Urine pH 5.5 Ur Specific [place] Less/equal 1.005 Urine Protein 100 H Urine Glucose (UA) Negative Urine Ketones 15 H Urine Occult Blood Trace Urine Nitrate Negative Urine Bilirubin Negative Urine Urobilinogen 0.2 Ur Leukocyte Esterase Negative Urine RBC 0-3 Urine WBC 6-8 H Ur Squamous Epith Cells Greater than 10 H Amorphous Sediment Moderate H Urine Bacteria Occasional H Hyaline Casts 0-3 Granular Casts 1-3 H Micro UA Comment Culture not ind Ur Microscopic Review Microscopic reviewed Urine Culture Comments Culture not ind Microbiology 02/20/18 11:35 Nasal Wash Influenza Types A,B Antigen - Final Negative for FLU A and B antigen Infection due to influenza A or B cannot be ruled out since the antigen present in the sample may be below the detection limit of the test. - Imaging Impressions Chest X-Ray 02/20/18 11:14 CONCLUSION: Patchy bilateral interstitial infiltrates in both lower lung suggestive of pneumonia. Chest CTA 02/20/18 12:28 CONCLUSION: 1. No evidence of pulmonary embolism. 2. Focal alveolar consolidations are noted involving the lingula of the left upper lobe as well as the right middle lobe consistent with probable pneumonia. Scattered reticular nodular infiltrates are also noted throughout the upper lobes bilaterally. Minimal scattered reticular nodular infiltrates are also noted within the posterior aspects of the lower lobes. 3. Bronchiectasis is noted bilaterally. 4. Coronary artery calcifications. 5. Degenerative changes are noted throughout the thoracic spine. Assessment and Plan - Assessment (1) Bilateral pneumonia Code(s): J18.9 - Pneumonia, unspecified organism Status: Acute (2) Community acquired pneumonia Code(s): J18.9 - Pneumonia, unspecified organism Status: Acute (3) Atrial fibrillation with RVR Code(s): I48.91 - Unspecified atrial fibrillation Status: Acute - Plan This is an 82-year-old male patient who presented to the ED with: Community-acquired bilateral pneumonia -Patient reports worsening cold symptoms including increasing subjective fevers , generalized weakness, productive cough with green phlegm and shortness of breath. Improving. No fever overnight. -CBC with white blood cell 10.5. No fever since presentation. Lactic acid 2.0. Monitor for infection. -A chest CTA was done secondary to elevated d-dimer, reviewed showing bilateral pneumonia. Ruled out PE. -Was given IV ceftriaxone and azithromycin in ED. Will continue. -Blood cultures pending, follow. -UA negative. Legionella pending. Follow. -PT evaluation ordered and pending. -Supplemental O2 as needed, comfortable on RA. -Duonebs scheduled and as needed. Add incentive spirometry. -Supportive care. Paroxysmal atrial fibrillation, new onset, likely secondary to acute infection -EKG reviewed showing Atrial fibrillation in RVR. Currently in NSR on assessment and on monitor. -Patient denies ever having atrial fibrillation in the past. -This paroxysmal response is likely related to the acute bilateral pneumonia infection. -Spoke to patient at length regarding the risks and benefits of anticoagulation. Patient's CHADSVAS is a 2. -Requesting to get cardiology input regarding anticoagulation. Appreciate input. Added Eliquis. Check lipid panel and awaiting echo. -Continue to monitor overnight on telemetry. No arrhythmias noted. 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 -Acyclovir ointment ordered. -Assess response. Improved today. DVT Prophylaxis: David Blackburn. Discharge Planning: Awaiting clinical improvement, will benefit from one more day of antibiotics. (2) Community acquired pneumonia Qualifiers: Laterality: unspecified laterality Qualified Code(s): J18.9 - Pneumonia, unspecified organism
[2018-02-21] MEDS: Tiotropium Bromide 18 MCG/ACT Inhaler INH SCH (09:00)
[2018-02-21] MEDS: guaiFENesin 600 MG ER Tablet PO SCH ×2 (09:00→22:14)
[2018-02-21 10:45] LABS: Chol/HDL Ratio 2.7 Ratio; HDL Cholesterol 45.4 mg/dL (40.0-60.0)
--- NOTE | 2018-02-21 10:50 | ECHRPT ---
Indication: Heart Failure CONCLUSIONS Normal left ventricular size. Wall thickness is measured at the upper limits of normal. The left ventricular systolic function is normal with an estimated ejection fraction in the range of 55-60%. No regional wall motion abnormalities are present. Trace mitral valve regurgitation. Moderate mitral annular calcification. Trileaflet aortic valve. Trace aortic valve regurgitation. There is mild tricuspid valve regurgitation. The estimated pulmonary arterial pressure is 46 mmHg. BP: / HR: Rhythm: MEASUREMENTS (Male / Female) Normal Values Technical Quality:Fair 2D ECHO LV Diastolic Diameter PLAX 4.0 cm 4.2 - 5.9 / 3.9 - 5.3 cm LV Systolic Diameter PLAX 2.8 cm IVS Diastolic Thickness 1.2 cm 0.6 - 1.0 / 0.6 - 0.9 cm LVPW Diastolic Thickness 1.2 cm 0.6 - 1.0 / 0.6 - 0.9 cm LV Relative Wall Thickness 0.6 RV Internal Dim ED PLAX 2.9 cm LVOT Diameter 2.1 cm Aortic Root Diameter 3.3 cm LA Systolic Diameter LX 3.7 cm 3.0 - 4.0 / 2.7 - 3.8 cm M-MODE AV Cusp Separation MM 2.3 cm DOPPLER AV Peak Velocity 156.0 cm/s AV Peak Gradient 9.7 mmHg AI Peak Velocity 373.0 cm/s AI Peak Gradient 55.7 mmHg AI Pressure Half Time 813.0 ms LVOT Peak Velocity 122.0 cm/s LVOT Peak Gradient 6.0 mmHg AV Area Cont Eq pk 2.7 cm Mitral E Point Velocity 68.1 cm/s Mitral A Point Velocity 63.2 cm/s Mitral E to A Ratio 1.1 LV E' Lateral Velocity 8.5 cm/s Mitral E to LV E' Lateral Ratio 8.0 LV E' Septal Velocity 10.5 cm/s Mitral E to LV E' Septal Ratio 6.5 TR Peak Velocity 299.0 cm/s TR Peak Gradient 35.8 mmHg Right Atrial Pressure 10.0 mmHg Pulmonary Artery Systolic Pressu 45.8 mmHg Right Ventricular Systolic Press 45.8 mmHg FINDINGS LEFT VENTRICLE Normal left ventricular size. Wall thickness is measured at the upper limits of normal. The left ventricular systolic function is normal with an estimated ejection fraction in the range of 55-60%. No regional wall motion abnormalities are present. RIGHT VENTRICLE Normal right ventricular size and systolic function. LEFT ATRIUM The left atrial size is normal. RIGHT ATRIUM The right atrial size is normal. ATRIAL SEPTUM Normal atrial septal thickness without atrial level shunting by limited color doppler interrogation. AORTA The aortic root and proximal ascending aorta are normal in size on limited imaging. MITRAL VALVE Trace mitral valve regurgitation. Moderate mitral annular calcification. AORTIC VALVE Trileaflet aortic valve. Trace aortic valve regurgitation. TRICUSPID VALVE There is mild tricuspid valve regurgitation. The estimated pulmonary arterial pressure is 46 mmHg. PULMONARY VALVE No pulmonary valve regurgitation or stenosis. VESSELS The inferior vena cava is normal in size. PERICARDIUM No pericardial effusion. Nathan Ramirez MD (Electronically Signed) Final Date:21 February 2018 10:49
[2018-02-21] MEDS: Azithromycin Inj 500 MG in Sodium Chlor 0.9% Inj 250 ML IV.SIG SCH (12:09)
[2018-02-21] MEDS ORDERED: guaiFENesin/Dextromethorphan 200 MG/20 MG 10 ML UDC PO PRN (12:44)
--- NOTE | 2018-02-21 19:46 | ECG ---
Date Performed: 02/20/2018 Time Performed: 11:23:16 PTAGE: 82 years EKG: ATRIAL FIBRILLATION WITH RAPID VENTRICULAR RESPONSE INCOMPLETE RIGHT BUNDLE BRANCH BLOCK OH NIMAL ST DEPRESSION ABNORMAL RHYTHM ECG PREVIOUS TRACING : 04/24/1997 11.27 Compared to previous tracing, the patient has converted to atrial fibrillation With rapid ventricular response DOCTOR: Noe Whitfield Interpretating Date/Time 02/21/2018 19:45:49
[2018-02-22 06:51] LABS: Potassium 3.6 meq/L (3.5-5.1)
[2018-02-22 06:56] LABS: Calcium 8.5 mg/dL (8.5-10.1); Carbon Dioxide 27.3 meq/L (21.0-32.0)
[2018-02-22] MEDS: Sod Chloride 0.9% Inj 1,000 ML IV.CONT SCH (08:18)
[2018-02-22] MEDS: Tiotropium Bromide 18 MCG/ACT Inhaler INH SCH (08:34)
[2018-02-22] MEDS: guaiFENesin 600 MG ER Tablet PO SCH (08:34)
[2018-02-22] MEDS: Azithromycin Inj 500 MG in Sodium Chlor 0.9% Inj 250 ML IV.SIG SCH (12:36)
[2018-02-22 13:42] VITALS: BP 142/75; TEMP 97.4; O2SAT 95
[2018-02-22 14:01] VITALS: PULSE 76; RESP 18
--- NOTE | 2018-02-22 14:44 | P.DCO ---
- Diagnosis (1) Atrial fibrillation with RVR Status: Acute (2) Bilateral pneumonia Status: Acute - Physical Therapy Order: Evaluate and treat, Improve ambulation, Strength and gait training - Home Health Nursing Order: Medical education, Signs/symptoms of disease process, Nursing assessment with vital signs - Case Management Consult Case Management Consult-Home Health: Yes - Certification I have seen patient Alden Cruz on 02/22/18. My clinical findings support the need for the requested home health care services because: Deconditioned with increased weakness I certify that my clinical findings support that this patient is homebound because: Unsteady gait/balance
--- NOTE | 2018-02-22 17:01 | P.DS ---
Date of admission: 02/20/18 14:16 Primary care physician: [facility] Attending physician on discharge: Deneen Lozano Anticipated date of discharge: 02/22/18 Brief History from admission: This is an 82-year-old male patient with a known medical history of sinusitis who presented to the ED with complaints of upper respiratory symptoms including worsening cold symptoms, including shortness of breath with cough, green phlegm and chest tightness over the past 3 days. Patient states he has had subjective fevers at home and took Advil prior to arrival. It should be noted that he tok a recent trip to [place] over the and states he may have caught something from the airplane. He denies any history of atrial fibrillation, COPD, CHF, pulmonary embolism or DVT. Prior to this cold he is very healthy, an avid runner, and denies any significant medical problems except for sinus problems including a history of septoplasty. At the time of assessment patient is awake and alert, states he feels mildly improved, but still complains of continued cough with green phlegm and shortness of breath with exertion. He also states that he is developed cold sores on his upper and lower lip, does admit to having these in the past although has not had an outbreak for a while. On exam patient is in a regular rate. We will continue cardiac telemetry overnight. DS: Diagnosis - Discharge Diagnosis (1) Atrial fibrillation with RVR Status: Acute (2) Bilateral pneumonia Status: Acute DS: Medications - Discharge Medications Prescriptions: apixaban [Eliquis] 5 mg PO BID #60 tab azithromycin [Zithromax] 500 mg PO DAILY #5 tab cefuroxime axetil 500 mg PO Q12H #14 tab guaifenesin [Mucinex] 600 mg PO BID #20 tab ipratropium-albuterol 1 amp NEB Q6HR WHILE AWAKE NEB #1 box tiotropium bromide [Spiriva with HandiHaler] 18 mcg INH DAILY #1 inh DS: Summary Hospital Course: 82-year-old male who originally presented to the hospital because of respiratory symptoms including worsening cold symptoms, shortness of breath, phlegm production, weakness. Patient had workup done in emergency department and found to have bilateral community acquired pneumonia, proximal atrial fibrillation. Patient was admitted to the hospital with appropriate antibiotics to include Rocephin, Zithromax. Influenza testing was negative, sputum culture shows heavy growth of normal respiratory viky, Legionella was negative, blood cultures negative for 2 days. Patient did tolerate treatment well. He was started on Mucinex with appropriate response with expectorating mucus. His breathing is much improved. States that he is feeling better. Patient was found to have paroxysmal atrial fibrillation. Patient did undergo cardiac workup with cardiac enzymes which were unremarkable, echocardiogram which did not indicate any valvular issues. [employer] evaluated the patient and recommended that since the patient's chads score is 2. Agree with Eliquis. Patient did have a lipid panel performed which his LDL was below 70 not requiring any statin at this time. Patient is clinically improved. He is feeling much better. Physical therapy does not recommend any rehab facility. He does indicate possible short-term home health care with physical therapy. Case management consulted to arrange home health care. We will plan discharge once arrangements made by case management. - Time Spent with Patient Total time spent providing and/or coordinating discharge services: Greater than 30 minutes - Quality: VTE Deep Vein Thrombosis/Pulmonary Embolism Present on Admission: No Exam Vital signs: Vital Signs 02/21/18 19:00 02/21/18 19:35 02/21/18 20:00 Temperature 98.5 F Pulse Rate 81 81 61 Respiratory Rate 18 18 Blood Pressure 149/76 H Pulse Oximetry 95 02/22/18 00:03 02/22/18 04:09 02/22/18 07:35 Temperature 98.5 F 97.9 F Pulse Rate 76 67 76 Respiratory Rate 18 18 20 Blood Pressure 166/82 H 128/67 Pulse Oximetry 96 02/22/18 08:00 02/22/18 09:32 02/22/18 12:00 Temperature 98.6 F Pulse Rate 86 80 69 Respiratory Rate 18 Blood Pressure 155/70 H Pulse Oximetry 93 L 02/22/18 13:41 02/22/18 13:58 Temperature 97.4 F L Pulse Rate 72 76 Respiratory Rate 20 18 Blood Pressure 142/75 H Pulse Oximetry 95 Intake & Output 02/21/18 02/22/18 02/22/18 18:59 06:59 18:59 Intake Total 1590 / 1590 1240 / 1240 1950 / 1950 Output Total 550 / 550 600 / 600 325 / 325 Balance 1040 / 1040 640 / 640 1625 / 1625 Weight 78.2 kg Intake: IV 1350 / 1350 1000 / 1000 1950 / 1950 NS Inj 1,000 ML @ 100 mls/hr IV 1000 / 1000 1000 / 1000 1600 / 1600 .CONT .Q10H VIVIANA Rx#:[id number] Azithromycin Inj 500 MG In NS 250 / 250 250 / 250 Inj 250 ML @ 250 mls/hr IV.SIG Q24H VIVIANA Rx#:[id number] Rocephin Inj 1,000 MG In NS Inj 100 / 100 100 / 100 100 ML @ 200 mls/hr IV.SIG Q24H VIVIANA Rx#:[id number] Oral 240 / 240 240 / 240 Output: Urine 550 / 550 600 / 600 325 / 325 Other: # Voids 2 Date of Last Bowel Movement 02/22/18 Narrative: GENERAL: Well-developed, well-nourished, in no acute distress. alert and orientated HEENT: Head is normocephalic without any lesions or masses noted. Facial features are symmetric. Eyes: Extraocular muscles are intact. Conjunctivae were clear. NECK: Supple without any masses. Trachea midline no deviation. No JVD, CARDIAC: Irregular rhythm, irregular rate. S1/S2 are heard. No murmurs gallops or rubs. LUNGS: Clear to auscultation bilaterally. No wheeze, rhonchi or rales. No use of accessory muscles on inspiration or expiration. ABDOMEN: Soft, nontender. Nondistended. Bowel sounds heard in all 4 quadrants. No organomegaly or masses. Negative rebound, negative guarding EXTREMITIES: No edema, pulses are equal bilaterally. No cyanosis or clubbing NEUROLOGY: Mood and affect appear appropriate. Cranial nerves II through XII grossly intact. Moving all extremities, speech is clear Results Procedures completed during hospitalization: ECHOCARDIOGRAM CONCLUSIONS Normal left ventricular size. Wall thickness is measured at the upper limits of normal. The left ventricular systolic function is normal with an estimated ejection fraction in the range of 55-60%. No regional wall motion abnormalities are present. Trace mitral valve regurgitation. Moderate mitral annular calcification. Trileaflet aortic valve. Trace aortic valve regurgitation. There is mild tricuspid valve regurgitation. The estimated pulmonary arterial pressure is 46 mmHg. Labs on day of discharge: Labs from last 24 hours 02/22/18 05:50 Sodium 143 Potassium 3.6 Chloride 109 H Carbon Dioxide 27.3 Anion Gap 7 BUN 8 Creatinine 0.95 Estimated GFR 76 L Random Glucose 94 Calcium 8.5 Preliminary micro results at discharge 02/20/18 11:30 Aerobic Blood Culture - Preliminary Blood - Peripheral No growth in 2 days Anaerobic Blood Culture - Preliminary No growth in 2 days 02/20/18 11:35 Aerobic Blood Culture - Preliminary Blood - Peripheral No growth in 2 days Anaerobic Blood Culture - Preliminary No growth in 2 days - Impressions ITS Impressions Chest X-Ray 02/20/18 11:14 CONCLUSION: Patchy bilateral interstitial infiltrates in both lower lung suggestive of pneumonia. Chest CTA 02/20/18 12:28 CONCLUSION: 1. No evidence of pulmonary embolism. 2. Focal alveolar consolidations are noted involving the lingula of the left upper lobe as well as the right middle lobe consistent with probable pneumonia. Scattered reticular nodular infiltrates are also noted throughout the upper lobes bilaterally. Minimal scattered reticular nodular infiltrates are also noted within the posterior aspects of the lower lobes. 3. Bronchiectasis is noted bilaterally. 4. Coronary artery calcifications. 5. Degenerative changes are noted throughout the thoracic spine. Discharge Plan - Discharge Disposition Patient Disposition: W/Home Health Service - Discharge Condition Condition: Stable - Discharge Order Discharge Orders: Discharge Order (Routine); Ordered 02/22/18 Ordered By: Toy Barbosa - Discharge Details Anticipated Discharge Date: 02/22/18 Discharge Comment: Okay to discharge home once arrangements made by case management for home health care - Physicians Team Primary Care Provider: [facility] [place] Attending Provider: Deneen Lozano Other Providers: Raimundo Holguin MD
== END 2018-02-22 15:08 | disposition home health service (06) ==
LOC: PHED 10:53 → PHEDA 14:16 → PH3 15:23
PROVIDERS: ADMIT Internal Medicine; ATTEND Internal Medicine

== ENCOUNTER 2018-03-04 00:45 | Inpatient (IN) ==
[2018-03-04] MEDS ORDERED: MethylPREDNISolone Sod Succinate Inj 125 MG/2 ML Vial IV.PUSH ONE (00:48)
--- NOTE | 2018-03-04 00:54 | ED ---
HPI General Chief Complaint: Shortness of Breath/Dyspnea Stated Complaint: sob Time Seen by Provider: 03/04/18 00:48 Source: patient Mode of arrival: ambulatory Limitations: no limitations History of Present Illness The patient is a 82-year-old male who presents to the emergency department via private vehicle for shortness of breath. The patient states he developed shortness of breath on Wednesday night which has progressively worsened throughout the day on and into dumper mold cleaner on Wednesday. Patient complains of chest congestion, dry nonproductive cough, and recent hospitalization for pneumonia. The patient states he finished a full course of antibiotics after discharge approximately 10 days ago. The patient denies any known history of COPD, congestive heart failure, or pulmonary embolism. The patient does have a history of atrial fibrillation with RVR and is currently anticoagulated with Eliquis. The patient's primary physician is at the ID clinic. The patient denies any fever, chills, or sweats. Symptoms are moderate and progressive. There are no current alleviating factors. He denies any significant edema to the lower extremities. MD Complaint: Reports shortness of breath Onset (ago): day(s) Context: Reports recent illness Severity: severe Consistency/Duration: constant and progressively worsening Relieving factors: nothing Exacerbating factors: coughing and talking Known history of: Reports recurrent pneumonia Associated symptoms: Reports cough, wheezing and chest congestion Treatment prior to arrival: Reports none Related Data Home oxygen amount: none Home Medications Medication Instructions Recorded Confirmed fluticasone [Flonase Allergy 0 puff INTRANASAL WEEKLY PRN 02/20/18 03/04/18 Relief] ipratropium bromide 2 spray INTRANASAL BID 02/20/18 03/04/18 ipratropium bromide [Atrovent HFA] 1 puff INHALATION Q6H 02/20/18 03/04/18 Previous Rx's Medication Instructions Recorded apixaban [Eliquis] 5 mg PO BID #60 tab 02/22/18 guaifenesin [Mucinex] 600 mg PO BID #20 tab 02/22/18 ipratropium-albuterol 1 amp NEB Q6HR WHILE AWAKE NEB #1 02/22/18 box tiotropium bromide [Spiriva with 18 mcg INH DAILY #1 inh 02/22/18 HandiHaler] Allergies Allergy/AdvReac Type Severity Reaction Status Date / Time No Known Allergies Allergy Verified 02/20/18 10:55 Review of Systems ROS: all other systems reviewed are negative [facility] Medical History Medical History History of pneumonia (Acute) Sinusitis (Acute) Surgical History Surgical History H/O knee surgery (Acute) H/O submucous nasal surgery (Acute) History of abdominal surgery (Acute) History of nasal septoplasty (Acute) Family History Family History Other Family history non-contributory Social History Social History Substance History: No History of Abuse Second Hand Smoke Exposure: No Smoking Status: Former smoker Tobacco Type: Cigarettes How Often Do You Have a Drink Containing Alcohol: Monthly or less Recent Travel in [facility] within the Last 8 Weeks: No Recent Out of Country Travel within the Last 8 Weeks: No Exam Narrative Exam Narrative: GENERAL: Awake, alert, 82-year-old male who is in moderate respiratory distress and only able to speak in 1-2 word sentences. SKIN: Focused skin assessment warm/dry. HEAD: Atraumatic. Normocephalic. EYES: No injection or drainage. ENT: No nasal bleeding or discharge. Mucous membranes pink and moist. NECK: Trachea midline. No JVD. CARDIOVASCULAR: Regular, heart rate 100. RESPIRATORY: Tachypnea with a respiratory rate of 28. Diminished breath sounds in the bases with scattered rhonchi and wheezes. Intra-costal retractions and supraclavicular retractions noted. GASTROINTESTINAL: Abdomen soft, non-tender, nondistended. Mild abdominal breathing noted. MUSCULOSKELETAL: No obvious deformities. No clubbing. No cyanosis. No edema. Calves are soft bilaterally. NEUROLOGICAL: Awake and alert. No obvious cranial nerve deficits. Motor grossly within normal limits. Normal speech. PSYCHIATRIC: Appropriate mood and affect; insight and judgment normal. Course Initial Documented Vital Signs Pulse Oximetry 95 03/04/18 00:50 Last Documented Vital Signs Temperature 97.1 F L 03/04/18 00:51 Pulse Rate 70 03/04/18 02:35 Respiratory Rate 20 03/04/18 02:35 Blood Pressure 129/82 03/04/18 01:42 Pulse Oximetry 100 03/04/18 01:42 Critical Care Time Critical Care Time: Yes Total Critical Care Time: 35 Attestation: Aggregate critical care time was 35 minutes. Time to perform other separately billable procedures was not included in the critical care time. My time did not include minutes spent treating any other patients simultaneously or on activities that did not directly contribute to the patient's treatment. The services I provided to this patient were to treat and/or prevent clinically significant deterioration that could result in: Anoxia, hypoxia, respiratory failure, respiratory distress, arrhythmia, aspiration, . I provided critical care services requiring my management, as noted below: Chart data review, documentation time, medication orders and management, vital sign assessments/reviewing monitor data, ordering and reviewing lab tests, ordering and interpreting/reviewing x-rays and diagnostic studies, care of the patient and discussion of the patient with the admitting physicians. Medical Decision Making MDM Narrative Medical decision making narrative: IV was established, labs are drawn and sent, and the patient was placed on cardiac telemetry monitoring and continuous pulse oximetry monitoring. The patient was placed on BiPAP at 12/5 and 40% secondary to his increased work of breathing, tachypnea, and retractions. The patient was administered Solu-Medrol duo nebs x2. Lactic acid and blood culture were sent to lab. The patient's chest x-ray was unremarkable. The patient's troponin and BNP were within normal limits. The patient was reevaluated, his respiratory rate he came down to 22 on BiPAP, pulse came down to 71, blood pressure improved to 129/82, the patient's retractions had resolved. After 1 hour the patient was taken off of BiPAP and monitored. The patient will be admitted for dyspnea, most likely underlying reactive airway disease and/or COPD exacerbation. The patient was administer Levaquin to cover for possible early pneumonia. The patient was reevaluated at 2:30 AM, he started to have increased work of breathing once again and wheezing. Therefore, the patient was placed back on BiPAP and administered 2 more duo nebs. The patient will be admitted to the medical service, but will need to go to the stepdown unit/ICU at [facility] as he is on BiPAP. I discussed the patient with Dr. Rivera who agrees with admission. I also had a discussion with the patient and his that the patient may benefit from outpatient follow-up with pulmonology for outpatient pulmonary function testing and further evaluation of his recurrent shortness of breath with no obvious underlying source such as pneumonia at this time. Medical Screen Exam Complete: Yes Emergency Medical Condition: Yes Differential Diagnosis Differential Diagnosis: Differential diagnosis includes recurrent pneumonia, healthcare acquired pneumonia, COPD exacerbation, reactive airway disease, congestive heart failure, pulmonary edema, influenza, hypoxia, pulmonary embolism, cardiomyopathy. Lab Data Result diagrams: 03/04/18 00:50 03/04/18 00:50 Lab Results 03/04/18 03/04/18 03/04/18 Range/Units 00:50 00:50 00:50 CBC w Diff Auto diff final WBC 10.9 (4.0-11.0) th/mm3 RBC 4.68 (4.50-5.90) mil/mm3 Hgb 14.6 (13.0-17.0) gm/dL Hct 44.2 (39.0-51.0) % MCV 94.4 (80.0-100.0) fL MCH 31.3 (27.0-34.0) pg MCHC 33.1 (32.0-36.0) % RDW 13.6 (11.6-17.2) % Plt Count 438 D (150-450) th/mm3 MPV 10.0 (7.0-11.0) fL Neut % (Auto) 61.3 (16.0-70.0) % Lymph % (Auto) 27.2 (9.0-44.0) % [place] % (Auto) 7.6 (0.0-8.0) % Eos % (Auto) 3.2 (0.0-4.0) % Baso % (Auto) 0.7 (0.0-2.0) % Neut # (Auto) 6.6 (1.8-7.7) th/mm3 Lymph # (Auto) 3.0 (1.0-4.8) th/mm3 [place] # (Auto) 0.8 (0.0-0.9) th/mm3 Eos # (Auto) 0.4 (0.0-0.4) th/mm3 Baso # (Auto) 0.1 (0.0-0.2) th/mm3 WBC Differential . Differential Comment . PT 10.2 (9.8-11.6) sec INR 1.0 Ratio APTT 31.2 (23.4-31.7) sec Sodium 135 L (136-145) meq/L Potassium 4.1 (3.5-5.1) meq/L Chloride 101 (98-107) meq/L Carbon Dioxide 26.6 (21.0-32.0) meq/L Anion Gap 7 (5-15) meq/L BUN 20 H (7-18) mg/dL Creatinine 1.10 (0.60-1.30) mg/dL Estimated GFR 64 L (>89) mL/min Random Glucose 116 H (74-106) mg/dL Lactic Acid (0.4-2.0) mmol/L Calcium 9.0 (8.5-10.1) mg/dL Magnesium 2.1 (1.5-2.5) mg/dL Total Bilirubin 0.4 (0.2-1.0) mg/dL AST 31 (15-37) U/L ALT 38 (12-78) U/L Alkaline Phosphatase 89 (45-117) U/L Total Creatine Kinase 340 H (39-308) U/L CK-MB (CK-2) 11.3 H (0.5-3.6) ng/mL CK-MB (CK-2) % 3.3 (0.0-4.0) % Troponin I Less than 0.02 L (0.02-0.05) ng/mL B-Natriuretic Peptide (0-100) pg/mL Total Protein 8.3 H (6.4-8.2) g/dL Albumin 4.0 (3.4-5.0) g/dL 03/04/18 03/04/18 Range/Units 00:50 00:50 CBC w Diff WBC (4.0-11.0) th/mm3 RBC (4.50-5.90) mil/mm3 Hgb (13.0-17.0) gm/dL Hct (39.0-51.0) % MCV (80.0-100.0) fL MCH (27.0-34.0) pg MCHC (32.0-36.0) % RDW (11.6-17.2) % Plt Count (150-450) th/mm3 MPV (7.0-11.0) fL Neut % (Auto) (16.0-70.0) % Lymph % (Auto) (9.0-44.0) % [place] % (Auto) (0.0-8.0) % Eos % (Auto) (0.0-4.0) % Baso % (Auto) (0.0-2.0) % Neut # (Auto) (1.8-7.7) th/mm3 Lymph # (Auto) (1.0-4.8) th/mm3 [place] # (Auto) (0.0-0.9) th/mm3 Eos # (Auto) (0.0-0.4) th/mm3 Baso # (Auto) (0.0-0.2) th/mm3 WBC Differential Differential Comment PT (9.8-11.6) sec INR Ratio APTT (23.4-31.7) sec Sodium (136-145) meq/L Potassium (3.5-5.1) meq/L Chloride (98-107) meq/L Carbon Dioxide (21.0-32.0) meq/L Anion Gap (5-15) meq/L BUN (7-18) mg/dL Creatinine (0.60-1.30) mg/dL Estimated GFR (>89) mL/min Random Glucose (74-106) mg/dL Lactic Acid 1.0 (0.4-2.0) mmol/L Calcium (8.5-10.1) mg/dL Magnesium (1.5-2.5) mg/dL Total Bilirubin (0.2-1.0) mg/dL AST (15-37) U/L ALT (12-78) U/L Alkaline Phosphatase (45-117) U/L Total Creatine Kinase (39-308) U/L CK-MB (CK-2) (0.5-3.6) ng/mL CK-MB (CK-2) % (0.0-4.0) % Troponin I (0.02-0.05) ng/mL B-Natriuretic Peptide 41 (0-100) pg/mL Total Protein (6.4-8.2) g/dL Albumin (3.4-5.0) g/dL Imaging Data Radiologist's impression: Chest X-Ray 03/04/18 00:48 CONCLUSION: No acute cardiopulmonary process. ECG Data EKG Prior to Arrival: No Attestation: I personally reviewed and interpreted this ECG as follows: Interpretation: EKG reveals sinus rhythm with a rate 85. RSR prime in V1 consistent with incomplete right bundle branch block. QRS 94 ms. Discharge Plan Discharge Disposition Patient Disposition: ED Admit(ED Internal Use Only) Discharge Condition Condition: Stable Discharge Order Discharge Orders: ED Use Only Admit Order (Routine); Ordered 03/04/18 Ordered By: Israel Cantu Discharge Details Diagnosis: Dyspnea Physicians Team ED Provider: Israel Cantu Primary Care Provider: [facility],Physician [facility] /Orders / Referrals /Forms Prescriptions: No Action fluticasone [Flonase Allergy Relief] 50 mcg/actuation [place],Suspension Intranasal WEEKLY PRN (Reason: Shortness Of Breath) RF: 0 ipratropium bromide 0.03 % [place],Non-Aerosol 2 spray INTRANASAL BID RF: 0 ipratropium bromide [Atrovent HFA] 17 mcg/actuation Hfa Aerosol Inhaler 1 puff INHALATION Q6H RF: 0 ipratropium-albuterol 0.5 mg-3 mg(2.5 mg base)/3 mL Solution For Nebulization 1 amp NEB Q6HR WHILE AWAKE NEB Qty: 1 RF: 0 tiotropium bromide [Spiriva with HandiHaler] 18 mcg Capsule, W/Inhalation Device 18 mcg INH DAILY Qty: 1 RF: 0 apixaban [Eliquis] 5 mg Tablet 5 mg PO BID Qty: 60 RF: 0 guaifenesin [Mucinex] 600 mg Tablet Extended Release 12hr 600 mg PO BID Qty: 20 RF: 0 Status ED Status: Admitted Patient
--- NOTE | 2018-03-04 01:16 | XR ---
EXAM DATE: 03/04/2018 1:12 AM EST AGE/SEX: 82 years / Male INDICATIONS: Difficulty breathing that has gotten worse over the past 2 days. CLINICAL DATA: This is the patient's initial encounter. Patient reports that signs and symptoms have been present for 2 days and indicates a pain score of 0/10. MEDICAL/SURGICAL HISTORY: None. . None. . Knee surgery. nasal surgery. Abdomen surgery. COMPARISON: [facility], CHEST 1V SINGLE AP, 02/20/2018. . FINDINGS: The heart size is within normal limits. The lungs are grossly clear. No effusion is seen. CONCLUSION: No acute cardiopulmonary process. Electronically signed by: Chicho Ellis MD Board Certified Radiologist 03/04/2018 1:15 AM EST
[2018-03-04 01:20] LABS: Baso # (Auto) 0.1 th/mm3 (0.0-0.2); Baso % (Auto) 0.7 % (0.0-2.0); Eos # (Auto) 0.4 th/mm3 (0.0-0.4); Eos % (Auto) 3.2 % (0.0-4.0); Hematocrit 44.2 % (39.0-51.0); Hemoglobin 14.6 gm/dL (13.0-17.0); Lymph % (Auto) 27.2 % (9.0-44.0); Mean Corpuscular HGB Conc 33.1 % (32.0-36.0); Mean Corpuscular Hemoglobin 31.3 pg (27.0-34.0); Mean Corpuscular Volume 94.4 fL (80.0-100.0); Mono # (Auto) 0.8 th/mm3 (0.0-0.9); Mono % (Auto) 7.6 % (0.0-8.0); Neut # (Auto) 6.6 th/mm3 (1.8-7.7); Neut % (Auto) 61.3 % (16.0-70.0); Platelet Count 438 th/mm3 (150-450); Red Blood Count 4.68 mil/mm3 (4.50-5.90); Red Cell Distribution Width 13.6 % (11.6-17.2); White Blood Count 10.9 th/mm3 (4.0-11.0)
[2018-03-04 01:31] LABS: Chloride 101 meq/L (98-107); Potassium 4.1 meq/L (3.5-5.1); Sodium 135 meq/L (136-145)
[2018-03-04 01:35] LABS: Activated Partial Thrombo Time 31.2 sec (23.4-31.7); Anion Gap 7 meq/L (5-15); Blood Urea Nitrogen 20 mg/dL (7-18); Carbon Dioxide 26.6 meq/L (21.0-32.0); Glucose,Random 116 mg/dL (74-106); Magnesium 2.1 mg/dL (1.5-2.5); Prothrombin Time 10.2 sec (9.8-11.6)
[2018-03-04 01:38] LABS: Alanine Aminotransferase 38 U/L (12-78); Aspartate Aminotransferase 31 U/L (15-37); Glomerular Filtration Rate 64 mL/min (>89)
[2018-03-04 01:40] LABS: Total Protein 8.3 g/dL (6.4-8.2)
[2018-03-04 01:41] LABS: Alkaline Phosphatase 89 U/L (45-117); Creatine Kinase 340 U/L (39-308)
[2018-03-04 01:53] LABS: CKMB Percent 3.3 % (0.0-4.0); Creatine Kinase MB 11.3 ng/mL (0.5-3.6)
[2018-03-04] MEDS ORDERED: Levofloxacin 500 mg Premix Inj 500 MG/100 ML PIGGYBACK IV.SIG ONE (01:55)
[2018-03-04] MEDS ORDERED: Bisacodyl 10 MG Supp RECTAL PRN (03:00)
[2018-03-04] MEDS ORDERED: Acetaminophen 325 MG Tablet PO PRN (03:00)
[2018-03-04] MEDS ORDERED: Azithromycin Inj 500 MG in Sodium Chlor 0.9% Inj 250 ML IV.SIG SCH (03:00)
[2018-03-04] MEDS: Sod Chloride 0.9% Inj 1,000 ML IV.CONT SCH (03:33)
[2018-03-04 03:48] LABS: ABG Base Excess -1.3 mmol/L (-2-2); ABG PCO2 36 mmHg (38-42); ABG PO2 179 mmHg (61-120)
--- NOTE | 2018-03-04 07:15 | ECG ---
Date Performed: 03/04/2018 Time Performed: 01:00:13 PTAGE: 82 years EKG: Sinus rhythm INCOMPLETE RIGHT BUNDLE BRANCH BLOCK BORDERLINE ECG PREVIOUS TRACING : 02/20/2018 11.23 Compared to previous tracing, sinus rhythm has replaced atr ial fibrillation. DOCTOR: Nathan Ramirez Interpretating Date/Time 03/04/2018 07:14:28
--- NOTE | 2018-03-04 10:37 | P.HP ---
History of Present Illness Primary Care Physician: Phys[facility] Chief Complaint: Shortness of breath History of Present Illness: This is an 82-year-old male patient with a known medical history of atrial fibrillation on Eliquis who presented to the ED with complaints of shortness of breath. Patient states that the shortness of breath started on Wednesday and worsened throughout the day on and Wednesday. Patient does complain of some chest discomfort, a dry nonproductive cough and has been recently hospitalized for pneumonia and discharged home. Patient does admit that he finished a full course of antibiotics approximately 10 days ago post discharge and was doing relatively well. Even followed up with his PCP from the [place] with no further recommendations. He denies any history of COPD, CHF or PE. Patient denies any recent illness including fever, chills, headache, chest pain, abdominal pain, nausea or vomiting, diarrhea or dysuria. CT chest has been ordered. Pulmonary has been consulted. Leatha and Yun ordered. - Diagnosis (1) COPD exacerbation (2) Dyspnea Inpatient Certification: I certify that the inpatient services were ordered in accordance with Medicare regulations governing the order. This includes certification that hospital inpatient services are reasonable and necessary and in the case of services not specified as inpatient-only under 42 CFR 419.22(n), that they are appropriately provided as inpatient services in accordance to with the 2-midnight benchmark under 43 CFR 412.3(e) Estimated Total Length of Stay (Days): 3 Plans for Post Hospital Care: Not yet determined Review of Systems All other systems reviewed negative except as stated in HPI [facility] - History History Provided By: Patient - Medical History Medical History: Medical History (Last Reviewed 03/04/18 @ 10:33 by Bhargavi Rainey) History of pneumonia Sinusitis - Surgical History Surgical History: Surgical History (Last Reviewed 03/04/18 @ 10:33 by Bhargavi Rainey) H/O knee surgery H/O submucous nasal surgery History of abdominal surgery History of nasal septoplasty - Family History Family History: Family History (Last Reviewed 03/04/18 @ 10:33 by Bhargavi Rainey) Other Family history non-contributory - Social History I have reviewed the patient's Social History: Yes - Tobacco History Second Hand Smoke Exposure: No Tobacco Use In Past 30 Days: No Smoking Status: Former smoker Tobacco Type: Cigarettes - Alcohol History How Often Do You Have a Drink Containing Alcohol: 2 to 3 times a week - Substance Use History Substance History: No History of Abuse - Travel History Recent Travel in the [place] Within the Last 8 Weeks: No Recent Travel Out of the Country Within the Last 8 Weeks: No - Immunization History Tetanus Immunization: Unsure Hx Influenza Vaccine This Season: Yes Medications and Allergies Active Medications: Active Medications Acetaminophen (Tylenol) 650 mg PO Q4H PRN PRN Reason: Temp > 100.4 Al Hydroxide/Mg Hydroxide (Milk Of Magnesia Liq) 30 ml PO Q12H PRN PRN Reason: Mild Constipation Albuterol (Albuterol Neb (Prn)) 2.5 mg NEB Q2HR NEB PRN PRN Reason: SHORTNESS OF BREATH Albuterol (Duoneb Neb ([place]by)) 1 ampul NEB Q6HR WHILE AWAKE NEB KIRBY Apixaban (Eliquis) 5 mg PO BID [facility] Bisacodyl (Dulcolax Supp) 10 mg RECTAL DAILY PRN PRN Reason: SEVERE CONSITIPATION Fluticasone Propionate (Flonase Nasal [place]) 1 spray EACH NARE DAILY PRN PRN Reason: Shortness Of Breath Guaifenesin (Mucinex Er) 600 mg PO BID [facility] Azithromycin 500 mg/ Sodium (Chloride) 250 mls @ 250 mls/hr IV.SIG Q24H [facility] Last Admin: 03/04/18 03:33 Dose: 250 mls/hr Sodium Chloride (Ns Inj) 1,000 mls @ 45 mls/hr IV.CONT .[id number] [facility] Last Admin: 03/04/18 03:33 Dose: 45 mls/hr Lactulose (Lactulose Liq) 30 ml PO DAILY PRN PRN Reason: SEVERE CONSITIPATION Methylprednisolone Sodium Succinate (Solumedrol Inj) 60 mg IV.PUSH Q6H [facility] Ondansetron HCl (Zofran Inj) 4 mg IV.PUSH Q6H PRN PRN Reason: NAUSEA OR VOMITING Sennosides (Senokot) 17.2 mg PO Q12H PRN PRN Reason: Moderate Constipation Sodium Chloride (Ns Flush) 2 ml IV.FLUSH BID [facility] Sodium Chloride (Ns Flush) 2 ml IV.FLUSH PRN PRN PRN Reason: FLUSH AFTER USING IV ACCESS Tiotropium Norris (Spiriva 18 Mcg Inh) 18 mcg INH DAILY [facility] Allergies Allergy/AdvReac Type Severity Reaction Status Date / Time No Known Allergies Allergy Verified 02/20/18 10:55 Home Medications Medication Instructions Recorded Confirmed Type fluticasone [Flonase Allergy 0 puff INTRANASAL WEEKLY PRN 02/20/18 03/04/18 History Relief] ipratropium bromide 2 spray INTRANASAL BID 02/20/18 03/04/18 History ipratropium bromide [Atrovent HFA] 1 puff INHALATION Q6H 02/20/18 03/04/18 History Exam Vital signs: Vital Signs 03/04/18 00:50 03/04/18 00:51 03/04/18 01:00 Temperature 97.1 F L Pulse Rate 123 H 88 Respiratory Rate 30 H 30 H Blood Pressure 185/124 H Pulse Oximetry 95 93 L 03/04/18 01:03 03/04/18 01:04 03/04/18 01:42 Temperature Pulse Rate 71 Respiratory Rate 22 Blood Pressure 129/82 Pulse Oximetry 99 99 100 03/04/18 02:35 03/04/18 04:00 03/04/18 04:20 Temperature 97.9 F Pulse Rate 70 74 78 Respiratory Rate 20 16 19 Blood Pressure 119/78 Pulse Oximetry 98 03/04/18 04:25 03/04/18 04:48 03/04/18 08:00 Temperature 97.5 F L Pulse Rate 82 Respiratory Rate 37 H Blood Pressure 121/78 Pulse Oximetry 96 98 98 03/04/18 09:52 Temperature Pulse Rate 75 Respiratory Rate 19 Blood Pressure Pulse Oximetry 99 Intake & Output 03/03/18 03/04/18 03/04/18 18:59 06:59 18:59 Intake Total 100 / 100 Output Total 250 / 250 400 / 400 Balance -150 / -150 -400 / -400 Weight 75.2 kg Intake: IV 100 / 100 Levaquin 500 mg Premix Inj 500 100 / 100 mg In 100 ml @ 100 mls/hr IV. SIG ONCE ONE Rx#:[id number] Output: Urine 250 / 250 400 / 400 Other: Date of Last Bowel Movement 03/03/18 Weight On Admission 75.2 kg Narrative: GENERAL: Well-developed, well-nourished patient in [facility]. SKIN: Warm and dry. No rash. HEAD: Normocephalic. Atraumatic. EYES: Pupils equal and round. No scleral icterus. No injection or drainage. ENT: No nasal bleeding or discharge. Mucous membranes pink and moist. NECK: Supple. Trachea midline. CARDIOVASCULAR: Regular rate and rhythm. S1, S2 noted. No murmur appreciated. RESPIRATORY: No accessory muscle use. Wheezing throughout. Breath sounds equal bilaterally. GASTROINTESTINAL: Abdomen soft, non-tender, nondistended. Normoactive bowel sounds x4. MUSCULOSKELETAL: No obvious deformities. Extremities without clubbing, cyanosis , or edema. NEUROLOGICAL: Awake and alert. No obvious cranial nerve deficits. Motor grossly within normal limits. 5/5 muscle strength in bilateral upper and lower extremities. Normal speech. PSYCHIATRIC: Appropriate mood and affect; insight and judgment normal. Results - Labs CBC & Chem 7: 03/04/18 00:50 03/04/18 00:50 Labs: Laboratory Results - last 24 hr 03/04/18 03/04/18 03/04/18 00:50 00:50 00:50 CBC w Diff Auto diff final WBC 10.9 RBC 4.68 Hgb 14.6 Hct 44.2 MCV 94.4 MCH 31.3 MCHC 33.1 RDW 13.6 Plt Count 438 D MPV 10.0 Neut % (Auto) 61.3 Lymph % (Auto) 27.2 [place] % (Auto) 7.6 Eos % (Auto) 3.2 Baso % (Auto) 0.7 Neut # (Auto) 6.6 Lymph # (Auto) 3.0 [place] # (Auto) 0.8 Eos # (Auto) 0.4 Baso # (Auto) 0.1 WBC Differential . Differential Comment . PT 10.2 INR 1.0 APTT 31.2 Puncture Site Patient Temperature O2 Saturation ABG pH ABG pCO2 ABG pO2 ABG HCO3 ABG O2 Content ABG Base Excess ABG Methemoglobin David Test Hemoglobin Carboxyhemoglobin O2 Delivery Device Vent Setting Inspired O2 Critical Value Sodium 135 L Potassium 4.1 Chloride 101 Carbon Dioxide 26.6 Anion Gap 7 BUN 20 H Creatinine 1.10 Estimated GFR 64 L Random Glucose 116 H Lactic Acid Calcium 9.0 Magnesium 2.1 Total Bilirubin 0.4 AST 31 ALT 38 Alkaline Phosphatase 89 Total Creatine Kinase 340 H CK-MB (CK-2) 11.3 H CK-MB (CK-2) % 3.3 Troponin I Less than 0.02 L B-Natriuretic Peptide Total Protein 8.3 H Albumin 4.0 03/04/18 03/04/18 03/04/18 00:50 00:50 03:37 CBC w Diff WBC RBC Hgb Hct MCV MCH MCHC RDW Plt Count MPV Neut % (Auto) Lymph % (Auto) [place] % (Auto) Eos % (Auto) Baso % (Auto) Neut # (Auto) Lymph # (Auto) [place] # (Auto) Eos # (Auto) Baso # (Auto) WBC Differential Differential Comment PT INR APTT Puncture Site Right radial Patient Temperature 98.6 O2 Saturation 97 ABG pH 7.41 ABG pCO2 36 L ABG pO2 179 H ABG HCO3 23 ABG O2 Content 17.1 ABG Base Excess -1.3 ABG Methemoglobin 1.4 David Test Y Hemoglobin 12.3 Carboxyhemoglobin 0.9 O2 Delivery Device Bipap Vent Setting [id number]/epap5 Inspired O2 40 Critical Value No Sodium Potassium Chloride Carbon Dioxide Anion Gap BUN Creatinine Estimated GFR Random Glucose Lactic Acid 1.0 Calcium Magnesium Total Bilirubin AST ALT Alkaline Phosphatase Total Creatine Kinase CK-MB (CK-2) CK-MB (CK-2) % Troponin I B-Natriuretic Peptide 41 Total Protein Albumin - Imaging Impressions Chest X-Ray 03/04/18 00:48 CONCLUSION: No acute cardiopulmonary process. Caprini VTE Risk Assessment Caprini VTE Risk Assessment: Moderate/High Risk (score >= 2) Caprini Risk Assessment Model: Point Value = 1 Point Value = 2 Point Value = 3 Point Value = 5 Age 41-60 Minor surgery BMI > 25 kg/m2 Swollen legs Varicose veins or History of unexplained or recurrent spontaneous Oral contraceptives or hormone replacement Sepsis (< 1 month) Serious lung disease, including pneumonia (< 1 month) Abnormal pulmonary function Acute myocardial infarction Congestive heart failure (< 1 month) History of inflammatory bowel disease Medical patient at bed rest Age 61-74 Arthroscopic surgery Major open surgery (> 45 min) Laparoscopic surgery (> 45 min) Malignancy Confined to bed (> 72 hours) Immobilizing plaster cast Central venous access Age >= 75 History of VTE Family history of VTE Factor V Leiden Prothrombin [id number] Lupus anticoagulant Anticardiolipin antibodies Elevated serum homocysteine Heparin-induced thrombocytopenia Other congenital or acquired thrombophilia Stroke (< 1 month) Elective arthroplasty Hip, pelvis, or leg fracture Acute spinal cord injury (< 1 month) Prophylaxis Regimen: Total Risk Factor Score Risk Level Prophylaxis Regimen 0-1 Low Early ambulation 2 Moderate Order ONE of the following: *Sequential Compression Device (SCD) *Heparin 5000 units SQ BID 3-4 Higher Order ONE of the following medications: *Heparin 5000 units SQ TID *Enoxaparin/Lovenox 40 mg SQ daily (WT < 150 kg, CrCl > 30 mL/min) *Enoxaparin/Lovenox 30 mg SQ daily (WT < 150 kg, CrCl > 10-29 mL/min) *Enoxaparin/Lovenox 30 mg SQ BID (WT < 150 kg, CrCl > 30 mL/min) AND/OR *Sequential Compression Device (SCD) 5 or more Highest Order ONE of the following medications: *Heparin 5000 units SQ TID (Preferred with Epidurals) *Enoxaparin/Lovenox 40 mg SQ daily (WT < 150 kg, CrCl > 30 mL/min) *Enoxaparin/Lovenox 30 mg SQ daily (WT < 150 kg, CrCl > 10-29 mL/min) *Enoxaparin/Lovenox 30 mg SQ BID (WT < 150 kg, CrCl > 30 mL/min) AND *Sequential Compression Device (SCD) Assessment and Plan - Assessment (1) COPD exacerbation Code(s): J44.1 - Chronic obstructive pulmonary disease with (acute) exacerbation Status: Acute (2) Dyspnea Code(s): R06.00 - Dyspnea, unspecified Status: Acute - Plan This is a 89-year-old male patient with: COPD exacerbation/possible active airway disease -Recent hospitalization for bilateral pneumonia, has recently completed a course of antibiotics during previous hospitalization. -Patient presents with a 2-day history of worsening shortness of breath with nonproductive cough. -Chest x-ray reviewed showing no acute cardiopulmonary disease. -CBC and BMP reviewed, essentially unremarkable. BNP normal. -Started on Vanco and Zosyn. IV will continue. Blood cultures are pending. Follow. -IV steroids scheduled. Wean. -Duo nebs scheduled and as needed for shortness of breath and wheezing. -Added Mucinex. Continue Flonase. -Supplemental O2 to keep oxygen saturations greater than 92%. -Add CT chest. Follow. -Pulmonary consulted, input and recommendations pending. -Supportive care. History of atrial fibrillation on Eliquis -Continue cardiac telemetry, monitor for any arrhythmias. Controlled rate at this time. -Continue Eliquis. DVT prophylaxis: SCDs. Eliquis. (2) Dyspnea Qualifiers: Dyspnea type: unspecified Qualified Code(s): R06.00 - Dyspnea, unspecified
[2018-03-04] MEDS: MethylPREDNISolone Sod Succinate Inj 40 MG/ML Vial IV.PUSH SCH ×3 (10:40→21:56)
[2018-03-04] MEDS: guaiFENesin 600 MG ER Tablet PO SCH ×2 (10:45→20:38)
[2018-03-04] MEDS: Tiotropium Bromide 18 MCG/ACT Inhaler INH SCH (10:46)
[2018-03-04] MEDS ORDERED: Tiotropium Bromide 18 MCG/ACT Inhaler INH SCH (12:00)
[2018-03-04] MEDS: Piperacil/Tazo 4.5 GM Premix 4.5 GM/100 ML BAG IV.SIG SCH ×3 (12:45→23:56)
[2018-03-04] MEDS: Vancomycin Inj 1,000 MG in Sodium Chlor 0.9% Inj 250 ML IV.SIG SCH (13:50)
--- NOTE | 2018-03-04 15:05 | CT ---
EXAM DATE: 03/04/2018 2:51 PM EST AGE/SEX: 82 years / Male INDICATIONS: Short of breath since last night. Recent abnormal pulmonary CTA demonstrating alveolar consolidation. Evaluate for pneumonia. CLINICAL DATA: This is the patient's subsequent encounter. Patient reports that signs and symptoms h ave been present for 1 day and indicates a pain score of 0/10. MEDICAL/SURGICAL HISTORY: Chronic obstructive pulmonary disease. . Abdominal surgery. RADIATION DOSE: 9.86 CTDI (mGy) COMPARISON: [facility], CTA PULMONARY W CONTRAST W 3D, 02/20/2018. . TECHNIQUE: Multiple contiguous axial images were obtained through the chest without contrast. Image s were obtained in suspended respiration using multiple row detector helical technique. Using automa dez exposure control and adjustment of the mA and/or kV according to patient size, radiation dose was kept as low as reasonably achievable to obtain optimal diagnostic quality images. DICOM format imag e data is available electronically for review and comparison. FINDINGS: Lungs: The lungs are symmetrically aerated. No masses or nodular densities are seen. The previously noted bibasilar consolidation has improved. There is mild residual opacity in the anterior lingula w hich may represent mild scarring or atelectasis. Mediastinum: There is good visualization of the great vessels of the middle mediastinum. No evidenc e of mediastinal or hilar adenopathy/mass. There are coronary artery calcifications. Pleurae: No evidence of focal thickening or pleural effusion. Axillae: Unremarkable. Bony Structures: Unremarkable. Miscellaneous: The examination was extended to include the upper abdomen, and both adrenal glands ar e normal in size and configuration. CONCLUSION: 1. The previously noted bibasilar consolidation has improved. There is mild residual opacity in the anterior lingula which may represent mild scarring or atelectasis. 2. Coronary artery calcifications are again noted. Electronically signed by: Alden Underwood MD Board Certified Radiologist 03/04/2018 3:04 PM EST
[2018-03-04] MEDS ORDERED: IPRATROPIUM BROMIDE EACH NARE SCH (21:00)
[2018-03-05] MEDS: Sod Chloride 0.9% Inj 1,000 ML IV.CONT SCH (01:47)
[2018-03-05] MEDS: MethylPREDNISolone Sod Succinate Inj 40 MG/ML Vial IV.PUSH SCH ×4 (04:29→23:08)
[2018-03-05] MEDS: Piperacil/Tazo 4.5 GM Premix 4.5 GM/100 ML BAG IV.SIG SCH ×3 (05:39→17:04)
[2018-03-05 06:22] LABS: Chloride 103 meq/L (98-107); Potassium 4.4 meq/L (3.5-5.1); Sodium 136 meq/L (136-145)
[2018-03-05 06:25] LABS: Calcium 8.3 mg/dL (8.5-10.1)
[2018-03-05 06:33] LABS: Baso % (Auto) 0.1 % (0.0-2.0); Eos % (Auto) 0.1 % (0.0-4.0); Hematocrit 33.5 % (39.0-51.0); Hemoglobin 11.1 gm/dL (13.0-17.0); Lymph # (Auto) 0.8 th/mm3 (1.0-4.8); Lymph % (Auto) 5.4 % (9.0-44.0); Mean Corpuscular HGB Conc 33.1 % (32.0-36.0); Mean Corpuscular Hemoglobin 31.5 pg (27.0-34.0); Mean Corpuscular Volume 95.2 fL (80.0-100.0); Mean Platelet Volume 10.7 fL (7.0-11.0); Mono # (Auto) 0.4 th/mm3 (0.0-0.9); Neut # (Auto) 13.1 th/mm3 (1.8-7.7); Neut % (Auto) 91.4 % (16.0-70.0); Red Blood Count 3.52 mil/mm3 (4.50-5.90); Red Cell Distribution Width 13.6 % (11.6-17.2); White Blood Count 14.3 th/mm3 (4.0-11.0)
[2018-03-05 06:44] LABS: Alanine Aminotransferase 25 U/L (12-78); Albumin 2.8 g/dL (3.4-5.0); Alkaline Phosphatase 51 U/L (45-117); Anion Gap 5 meq/L (5-15); Aspartate Aminotransferase 19 U/L (15-37); Blood Urea Nitrogen 18 mg/dL (7-18); Carbon Dioxide 27.6 meq/L (21.0-32.0); Glomerular Filtration Rate 71 mL/min (>89); Glucose,Random 152 mg/dL (74-106); Total Protein 6.1 g/dL (6.4-8.2)
[2018-03-05 07:30] LABS: Platelet Count 343 th/mm3 (150-450)
[2018-03-05] MEDS: Tiotropium Bromide 18 MCG/ACT Inhaler INH SCH (08:47)
[2018-03-05] MEDS: guaiFENesin 600 MG ER Tablet PO SCH ×2 (08:48→20:44)
--- NOTE | 2018-03-05 11:18 | P.PNIM ---
Subjective Interval history: Follow-up recurrent pneumonia. Patient seen and examined, ambulating in room with no apparent distress. Slept well. Feels much improved today. Pulmonary saw patient last evening, continue IV antibiotics and steroids. Will transfer down to [facility], no longer needs ICU. On room air doing well. Physical Exam Vital signs: Vital Signs 03/04/18 12:00 03/04/18 12:11 03/04/18 13:00 Temperature Pulse Rate 74 74 78 Respiratory Rate 21 16 27 H Blood Pressure 124/60 Pulse Oximetry 97 96 97 03/04/18 13:11 03/04/18 13:49 03/04/18 14:00 Temperature Pulse Rate 74 73 74 Respiratory Rate 23 18 18 Blood Pressure 118/72 Pulse Oximetry 96 98 03/04/18 14:11 03/04/18 14:29 03/04/18 15:00 Temperature Pulse Rate 80 76 Respiratory Rate 25 H 32 H Blood Pressure 132/72 126/73 Pulse Oximetry 97 03/04/18 15:01 03/04/18 16:00 03/04/18 16:59 Temperature Pulse Rate 70 70 72 Respiratory Rate 24 27 H 21 Blood Pressure 131/72 106/65 Pulse Oximetry 94 L 95 95 03/04/18 17:00 03/04/18 17:59 03/04/18 18:00 Temperature Pulse Rate 74 76 76 Respiratory Rate 19 29 H 28 H Blood Pressure 121/67 Pulse Oximetry 94 L 93 L 93 L 03/04/18 20:00 03/04/18 21:44 03/05/18 00:00 Temperature 98.7 F 98.7 F Pulse Rate 74 83 68 Respiratory Rate 26 H 23 13 Blood Pressure 99/61 L 105/67 Pulse Oximetry 95 96 92 L 03/05/18 04:00 03/05/18 07:50 03/05/18 07:51 Temperature 98.7 F Pulse Rate 81 71 Respiratory Rate 30 H 20 Blood Pressure 144/65 H Pulse Oximetry 93 L 97 03/05/18 08:00 03/05/18 10:00 Temperature 98.2 F Pulse Rate 68 70 Respiratory Rate 23 25 H Blood Pressure 107/59 L 124/65 Pulse Oximetry 92 L 96 Intake & Output 03/04/18 03/05/18 03/05/18 18:59 06:59 18:59 Intake Total 450 / 450 2060 / 2060 Output Total 1080 / 1080 Balance -630 / -630 2059 Weight 76.7 kg Intake: IV 450 / 450 1100 / 1100 NS Inj 1,000 ML @ 45 mls/hr IV. 1000 / 1000 CONT .[id number] VIVIANA Rx#: [id number] Zosyn 4.5 GM Premix 4.5 gm In 200 / 200 100 / 100 100 ml @ 200 mls/hr IV.SIG Q6H VIVIANA Rx#:[id number] Vancomycin Inj 1,000 MG In NS 250 / 250 Inj 250 ML @ 250 mls/hr IV.SIG Q24H [facility]IV[facility]NA Rx#:[id number] Oral 960 / 960 Output: Urine 1080 / 1080 Other: Post Void Residual 1,300 Date of Last Bowel Movement 03/03/18 03/04/18 # Bowel Movements 0 Narrative: GENERAL: Well-developed, well-nourished patient in [facility]. SKIN: Warm and dry. No rash. HEAD: Normocephalic. Atraumatic. EYES: Pupils equal and round. No scleral icterus. No injection or drainage. ENT: No nasal bleeding or discharge. Mucous membranes pink and moist. NECK: Supple. Trachea midline. CARDIOVASCULAR: Regular rate and rhythm. S1, S2 noted. No murmur appreciated. RESPIRATORY: No accessory muscle use. Bilateral posterior wheezing in bases. Breath sounds equal bilaterally. GASTROINTESTINAL: Abdomen soft, non-tender, nondistended. Normoactive bowel sounds x4. MUSCULOSKELETAL: No obvious deformities. Extremities without clubbing, cyanosis , or edema. NEUROLOGICAL: Awake and alert. No obvious cranial nerve deficits. Motor grossly within normal limits. 5/5 muscle strength in bilateral upper and lower extremities. Normal speech. PSYCHIATRIC: Appropriate mood and affect; insight and judgment normal. Results - Labs CBC & Chem 7: 03/05/18 05:40 03/05/18 05:40 Laboratory Results - last 24 hr 03/05/18 03/05/18 05:40 05:40 CBC w Diff Slide review pending WBC 14.3 H RBC 3.52 L Hgb 11.1 L D Hct 33.5 L MCV 95.2 MCH 31.5 MCHC 33.1 RDW 13.6 Plt Count 343 MPV 10.7 Neut % (Auto) 91.4 H Lymph % (Auto) 5.4 L [place] % (Auto) 3.0 Eos % (Auto) 0.1 Baso % (Auto) 0.1 Neut # (Auto) 13.1 H Lymph # (Auto) 0.8 L [place] # (Auto) 0.4 Eos # (Auto) 0.0 Baso # (Auto) 0.0 WBC Differential . Diff Scan Auto diff confirmed Differential Comment . Sodium 136 Potassium 4.4 Chloride 103 Carbon Dioxide 27.6 Anion Gap 5 BUN 18 Creatinine 1.00 Estimated GFR 71 L Random Glucose 152 H Calcium 8.3 L Total Bilirubin 0.4 AST 19 ALT 25 Alkaline Phosphatase 51 Total Protein 6.1 L D Albumin 2.8 L D Microbiology 03/04/18 01:00 Blood - Peripheral Aerobic Blood Culture - Preliminary No growth in 1 day 03/04/18 01:00 Blood - Peripheral Anaerobic Blood Culture - Preliminary No growth in 1 day 03/04/18 01:00 Blood - Peripheral Aerobic Blood Culture - Preliminary No growth in 1 day 03/04/18 01:00 Blood - Peripheral Anaerobic Blood Culture - Preliminary No growth in 1 day - Imaging Impressions Chest CT 03/04/18 00:00 CONCLUSION: 1. The previously noted bibasilar consolidation has improved. There is mild residual opacity in the anterior lingula which may represent mild scarring or atelectasis. 2. Coronary artery calcifications are again noted. Assessment and Plan - Assessment (1) COPD exacerbation Code(s): J44.1 - Chronic obstructive pulmonary disease with (acute) exacerbation Status: Acute (2) Dyspnea Code(s): R06.00 - Dyspnea, unspecified Status: Acute - Plan This is a 89-year-old male patient with: Recurrent bilateral pneumonia, previously hospitalized COPD exacerbation/possible active airway disease -Recent hospitalization for bilateral pneumonia, has recently completed a course of antibiotics during previous hospitalization. -Patient presents with a 2-day history of worsening shortness of breath with nonproductive cough. -Chest x-ray reviewed showing no acute cardiopulmonary disease. -CBC and BMP reviewed, essentially unremarkable. BNP normal. -Started on Vanco and Zosyn. IV will continue. Blood cultures negative to date. Follow -IV steroids scheduled. Wean. -Duo nebs scheduled and as needed for shortness of breath and wheezing. -Added Mucinex. Continue Flonase. -Supplemental O2 to keep oxygen saturations greater than 92%. -Chest CT showing improvement in bibasilar consolidation. -Pulmonary consulted, input and recommendations stated. -Supportive care. History of atrial fibrillation on Eliquis -Continue cardiac telemetry, monitor for any arrhythmias. Controlled rate at this time. -Continue Eliquis. DVT prophylaxis: SCDs. Eliquis. (2) Dyspnea Qualifiers: Dyspnea type: unspecified Qualified Code(s): R06.00 - Dyspnea, unspecified
[2018-03-05] MEDS: Vancomycin Inj 1,000 MG in Sodium Chlor 0.9% Inj 250 ML IV.SIG SCH (13:17)
--- NOTE | 2018-03-05 15:41 | P.PN ---
Subjective Interval history: ALERT NAD Physical Exam Vital signs: Vital Signs 03/04/18 16:00 03/04/18 16:59 03/04/18 17:00 Temperature Pulse Rate 70 72 74 Respiratory Rate 27 H 21 19 Blood Pressure 131/72 106/65 Pulse Oximetry 95 95 94 L 03/04/18 17:59 03/04/18 18:00 03/04/18 20:00 Temperature 98.7 F Pulse Rate 76 76 74 Respiratory Rate 29 H 28 H 26 H Blood Pressure 121/67 99/61 L Pulse Oximetry 93 L 93 L 95 03/04/18 21:44 03/05/18 00:00 03/05/18 04:00 Temperature 98.7 F 98.7 F Pulse Rate 83 68 81 Respiratory Rate 23 13 30 H Blood Pressure 105/67 144/65 H Pulse Oximetry 96 92 L 93 L 03/05/18 07:50 03/05/18 07:51 03/05/18 08:00 Temperature 98.2 F Pulse Rate 71 71 Respiratory Rate 20 23 Blood Pressure 107/59 L Pulse Oximetry 97 92 L 03/05/18 10:00 03/05/18 11:00 03/05/18 12:00 Temperature 99.1 F Pulse Rate 70 78 78 Respiratory Rate 25 H 42 H 40 H Blood Pressure 124/65 123/56 L 131/89 Pulse Oximetry 96 91 L 03/05/18 12:01 03/05/18 13:00 03/05/18 14:00 Temperature Pulse Rate 70 72 68 Respiratory Rate 22 27 H 19 Blood Pressure 105/58 L 120/64 Pulse Oximetry 98 95 Intake & Output 03/04/18 03/05/18 03/05/18 18:59 06:59 18:59 Intake Total 450 / 450 2160 / 2160 700 / 700 Output Total 1080 / 1080 Balance -630 / -630 2160 / 2160 700 / 700 Weight 76.7 kg Intake: IV 450 / 450 1200 / 1200 700 / 700 NS Inj 1,000 ML @ 45 mls/hr IV. 1000 / 1000 600 / 600 CONT .[id number] [facility] Rx#: [id number] Zosyn 4.5 GM Premix 4.5 gm In 200 / 200 200 / 200 100 / 100 100 ml @ 200 mls/hr IV.SIG Q6H [facility] Rx#:[id number] Vancomycin Inj 1,000 MG In NS 250 / 250 Inj 250 ML @ 250 mls/hr IV.SIG Q24H [facility] Rx#:[id number] Oral 960 / 960 Output: Urine 1080 / 1080 Other: Post Void Residual 1,300 Date of Last Bowel Movement 03/03/18 03/04/18 # Bowel Movements 0 Narrative: GENERAL: Well-developed, well-nourished patient in NAD. SKIN: Warm and dry. No rash. HEAD: Normocephalic. Atraumatic. EYES: Pupils equal and round. No scleral icterus. No injection or drainage. ENT: No nasal bleeding or discharge. Mucous membranes pink and moist. NECK: Supple. Trachea midline. CARDIOVASCULAR: Regular rate and rhythm. S1, S2 noted. No murmur appreciated. RESPIRATORY: No accessory muscle use. Bilateral posterior wheezing in bases. Breath sounds equal bilaterally. GASTROINTESTINAL: Abdomen soft, non-tender, nondistended. Normoactive bowel sounds x4. MUSCULOSKELETAL: No obvious deformities. Extremities without clubbing, cyanosis , or edema. NEUROLOGICAL: Awake and alert. No obvious cranial nerve deficits. Motor grossly within normal limits. 5/5 muscle strength in bilateral upper and lower extremities. Normal speech. PSYCHIATRIC: Appropriate mood and affect; insight and judgment normal. Results - Labs CBC & Chem 7: 03/05/18 05:40 03/05/18 05:40 Laboratory Results - last 24 hr 03/05/18 03/05/18 05:40 05:40 CBC w Diff Slide review pending WBC 14.3 H RBC 3.52 L Hgb 11.1 L D Hct 33.5 L MCV 95.2 MCH 31.5 MCHC 33.1 RDW 13.6 Plt Count 343 MPV 10.7 Neut % (Auto) 91.4 H Lymph % (Auto) 5.4 L Traverse % (Auto) 3.0 Eos % (Auto) 0.1 Baso % (Auto) 0.1 Neut # (Auto) 13.1 H Lymph # (Auto) 0.8 L [place]verse # (Auto) 0.4 Eos # (Auto) 0.0 Baso # (Auto) 0.0 WBC Differential . Diff Scan Auto diff confirmed Differential Comment . Sodium 136 Potassium 4.4 Chloride 103 Carbon Dioxide 27.6 Anion Gap 5 BUN 18 Creatinine 1.00 Estimated GFR 71 L Random Glucose 152 H Calcium 8.3 L Total Bilirubin 0.4 AST 19 ALT 25 Alkaline Phosphatase 51 Total Protein 6.1 L D Albumin 2.8 L D Microbiology 03/04/18 01:00 Blood - Peripheral Aerobic Blood Culture - Preliminary No growth in 1 day 03/04/18 01:00 Blood - Peripheral Anaerobic Blood Culture - Preliminary No growth in 1 day 03/04/18 01:00 Blood - Peripheral Aerobic Blood Culture - Preliminary No growth in 1 day 03/04/18 01:00 Blood - Peripheral Anaerobic Blood Culture - Preliminary No growth in 1 day Assessment and Plan - Plan RESPIRATORY FAILURE PNA COPD EXAERBATION PLAN O2 NEEDED ANTIBX BRONCHODILATOR THERAPY F/U CXRAY
[2018-03-06] MEDS: Piperacil/Tazo 4.5 GM Premix 4.5 GM/100 ML BAG IV.SIG SCH ×2 (00:22→05:50)
--- NOTE | 2018-03-06 00:28 | MB ---
cc: Agueda Aguilar MD DATE: 03/04/2018 REASON FOR CONSULTATION: Pneumonia and COPD. HISTORY OF PRESENT ILLNESS: This is an 82-year-old man who recently was in the hospital for a history of pneumonia, was treated, has been on oral antibiotics, and was home for over 2 weeks. The patient, however, became more short of breath over the past 2-3 days with associated cough and chest tightness. He could not catch his breath and thus was brought back to the emergency room and subsequently admitted. The patient had a CT scan of the chest done and was started on IV vancomycin and Zosyn. The chest x-ray showed no active infiltrates; however, the CT scan of the chest showed an improving infiltrate as compared to the one done a month ago. The patient denies hemoptysis, fevers, chills. He has no nausea, vomiting or aspiration. Denies any leg or calf muscle pains. PAST HISTORY: Includes a history of pneumonia and a prior history of nasal surgery and sinus surgery, also has had an exploratory laparotomy. He has had knee repair done. He has been on Eliquis for chronic atrial fibrillation. HABITS: The patient smoked remotely for about 15 years and then quit. No significant alcohol use. Presently retired. FAMILY HISTORY: Essentially noncontributory. ALLERGIES: NO DRUG ALLERGIES ARE LISTED. REVIEW OF SYSTEMS: The patient denies recent weight loss. He has had some leg swelling. He has dizziness, postnasal drip, cough with expectoration epigastric distress. Denies nausea or vomiting. No urinary symptoms. No leg or calf muscle pains. He has some joint pains to the extremities. MEDICATIONS: List was reviewed from the chart, which also included: 1. Solu-Medrol 60 mg every 6 hours. 2. Spiriva 1 capsule daily. 3. Flonase nasal spray 2 sprays in each nostril daily. 4. Zithromax 500 mg a day. 5. Eliquis 5 mg b.i.d. PHYSICAL EXAMINATION: GENERAL: This is an elderly, well built male who is in no acute distress. Mild pallor. No cyanosis or icterus. No lymphadenopathy or peripheral edema. VITAL SIGNS: Blood pressure is 130/80, pulse is 92, respirations are 18, temperature 97.8. HEENT: Head is normocephalic. Pupils reactive and equal. Tongue is moist. Throat is injected. Nasal mucosa is edematous. NECK: Supple. No bruits, thyroid enlargement or lymphadenopathy. CHEST: Distant breath sounds with expiratory wheezes throughout both lung camp, prolonged expirations. HEART: The heart sounds are irregular. S1 and S2. No murmur. ABDOMEN: Soft, protuberant. No mass. No organomegaly or tenderness. Bowel sounds active. EXTREMITIES: No lesions. Minimal edema and mild varicosities. No calf tenderness on either side. NEUROLOGIC: Reflexes are 1+ with no gross motor deficits. Cranial nerves are grossly intact. IMPRESSION: 1. Acute bronchitis with basilar atelectasis. 2. Chronic obstructive pulmonary disease with an acute exacerbation. 3. History of atrial fibrillation. 4. Right basilar atelectasis. PLAN: The patient has been placed on O2 at 2 liters. We will reduce the Solu-Medrol to 40 mg IV every 6 hours. Mucinex 600 mg b.i.d. to be added, DuoNeb solution with a nebulizer every 4 hours and Symbicort 160/4.5 mcg 2 puffs twice a day, and O2 at 3 liters. We will get a pulmonary function study at the bedside and sputum will be sent for Gram stain and culture. If he is clinically stable over the next 24-48 hours, we could switch him to p.o. medications. Thank you for this consultation. Agueda Aguilar MD VJD/naun , 12:01 AM , 12:12 AM
[2018-03-06] MEDS: MethylPREDNISolone Sod Succinate Inj 40 MG/ML Vial IV.PUSH SCH ×2 (05:49→10:53)
[2018-03-06] MEDS: guaiFENesin 600 MG ER Tablet PO SCH (08:30)
[2018-03-06] MEDS: Tiotropium Bromide 18 MCG/ACT Inhaler INH SCH (08:31)
[2018-03-06 08:57] VITALS: PULSE 80; RESP 20; O2SAT 97
[2018-03-06 09:20] VITALS: BP 178/81; TEMP 97.7
--- NOTE | 2018-03-06 10:46 | P.DS ---
Date of admission: 03/04/18 02:50 Primary care physician: [facility] Anticipated date of discharge: 03/06/18 Brief History from admission: This is an 82-year-old male patient with a known medical history of atrial fibrillation on Eliquis who presented to the ED with complaints of shortness of breath. Patient states that the shortness of breath started on Wednesday and worsened throughout the day on and Wednesday. Patient does complain of some chest discomfort, a dry nonproductive cough and has been recently hospitalized for pneumonia and discharged home. Patient does admit that he finished a full course of antibiotics approximately 10 days ago post discharge and was doing relatively well. Even followed up with his PCP from the [place] with no further recommendations. He denies any history of COPD, CHF or PE. Patient denies any recent illness including fever, chills, headache, chest pain, abdominal pain, nausea or vomiting, diarrhea or dysuria. CT chest has been ordered. Pulmonary has been consulted. Leatha and Yun ordered. Patient update on day of discharge: Patient seen and examined follow-up bilateral pneumonia recurrent. Patient ambulating in room. Much improved. Shortness of breath improved. On room doing well. Continues to have cough. Mucinex helping. Well drinking well. States he feels improved, eager to go home. IV antibiotics transitioned to p.o. Follow-up surgical instrument maker outpatient. DS: Diagnosis - Discharge Diagnosis (1) COPD exacerbation Status: Acute (2) Dyspnea Status: Acute DS: Medications - Discharge Medications Prescriptions: ipratropium bromide [Atrovent HFA] 1 puff INHALATION Q6H #1 inh ipratropium-albuterol 1 amp NEB Q6HR WHILE AWAKE NEB #84 ml levofloxacin [Levaquin] 750 mg PO DAILY 7 Days #7 tab prednisone [Deltasone] 20 mg PO BID #3 tab prednisone 20 mg PO DAILY 3 Days #3 tab tiotropium bromide [Spiriva with HandiHaler] 18 mcg INH DAILY #1 inh DS: Summary Hospital Course: This is a 89-year-old male patient with recurrent bilateral pneumonia and possible COPD exacerbation/airway disease. Patient was recently hospitalized for bilateral pneumonia and has recently completed a course of antibiotic status post hospitalization. Was doing relatively well when his shortness of breath worsened as well as his cough worsened with thick production of sputum. He chest x-ray did not show any acute cardiopulmonary disease. Upon presentation CBC and BMP were unremarkable. BNP normal. Patient was started on IV vancomycin and Zosyn. Was continued during hospitalization. Blood cultures are negative to date. IV steroids were continued and weaned. Changed to p.o. on day of discharge. Duo nebs were scheduled and available as needed for shortness of breath. Mucinex was ordered. Continued on Flonase. Patient was given supplemental O2, eventually weaned off and doing well on room air on day of discharge. A chest CT was also done showing improvement in bibasilar consolidation. Pulmonary was consulted during hospitalization, patient will be encouraged to follow-up with surgical instrument maker upon discharge. Patient does have a history of atrial fibrillation on Eliquis, was continued on cardiac telemetry during hospitalization, controlled rate during hospitalization. Continued on home Eliquis. [facility]. Patient is stable on day of discharge. Discharge home. Follow-up PCP and surgical instrument maker. Rx is written. Activity as tolerated. Diet as tolerated. - Time Spent with Patient Total time spent providing and/or coordinating discharge services: Greater than 30 minutes - Quality: VTE Deep Vein Thrombosis/Pulmonary Embolism Present on Admission: No Exam Vital signs: Vital Signs 03/05/18 11:00 03/05/18 12:00 03/05/18 12:01 Temperature 99.1 F Pulse Rate 78 78 70 Respiratory Rate 42 H 40 H 22 Blood Pressure 123/56 L 131/89 Pulse Oximetry 91 L 03/05/18 13:00 03/05/18 14:00 03/05/18 15:00 Temperature Pulse Rate 72 68 72 Respiratory Rate 27 H 19 20 Blood Pressure 105/58 L 120/64 126/72 Pulse Oximetry 98 95 95 03/05/18 16:00 03/05/18 17:00 03/05/18 19:38 Temperature Pulse Rate 74 74 77 Respiratory Rate 27 H 36 H 22 Blood Pressure 135/68 121/73 Pulse Oximetry 96 96 98 03/05/18 20:00 03/06/18 00:00 03/06/18 04:00 Temperature 96.4 F L 96.8 F L 97.7 F Pulse Rate 66 62 68 Respiratory Rate 18 19 19 Blood Pressure 146/74 H 133/64 178/81 H Pulse Oximetry 94 L 95 93 L 12/16/18 08:00 03/06/18 08:55 Temperature 97.7 F Pulse Rate 68 80 Respiratory Rate 19 20 Blood Pressure 178/81 H Pulse Oximetry 93 L 97 Intake & Output 03/05/18 03/06/18 03/06/18 18:59 06:59 18:59 Intake Total 2110 / 2110 340 / 340 100 / 100 Output Total 900 / 900 Balance 1210 / 1210 340 / 340 100 / 100 Intake: IV 1050 / 1050 100 / 100 100 / 100 NS Inj 1,000 ML @ 45 mls/hr IV. 600 / 600 CONT .[id number] [facility] Rx#: [id number] Zosyn 4.5 GM Premix 4.5 gm In 200 / 200 100 / 100 100 / 100 100 ml @ 200 mls/hr IV.SIG Q6H [facility] Rx#:[id number] Vancomycin Inj 1,000 MG In NS 250 / 250 Inj 250 ML @ 250 mls/hr IV.SIG Q24H [facility] Rx#:[id number] Oral 1060 / 1060 240 / 240 Output: Urine 900 / 900 Other: # Voids 2 Date of Last Bowel Movement 03/05/18 03/05/18 # Bowel Movements 1 Narrative: GENERAL: Well-developed, well-nourished patient in NAD. SKIN: Warm and dry. No rash. HEAD: Normocephalic. Atraumatic. EYES: Pupils equal and round. No scleral icterus. No injection or drainage. ENT: No nasal bleeding or discharge. Mucous membranes pink and moist. NECK: Supple. Trachea midline. CARDIOVASCULAR: Regular rate and rhythm. S1, S2 noted. No murmur appreciated. RESPIRATORY: No accessory muscle use. Clear to auscultation. Breath sounds equal bilaterally. GASTROINTESTINAL: Abdomen soft, non-tender, nondistended. Normoactive bowel sounds x4. MUSCULOSKELETAL: No obvious deformities. Extremities without clubbing, cyanosis , or edema. NEUROLOGICAL: Awake and alert. No obvious cranial nerve deficits. Motor grossly within normal limits. 5/5 muscle strength in bilateral upper and lower extremities. Normal speech. PSYCHIATRIC: Appropriate mood and affect; insight and judgment normal. Results Procedures completed during hospitalization: See above Labs on day of discharge: Preliminary micro results at discharge 03/04/18 01:00 Aerobic Blood Culture - Preliminary Blood - Peripheral No growth in 1 day Anaerobic Blood Culture - Preliminary No growth in 1 day 03/04/18 01:00 Aerobic Blood Culture - Preliminary Blood - Peripheral No growth in 1 day Anaerobic Blood Culture - Preliminary No growth in 1 day - Impressions ITS Impressions Chest CT 03/04/18 00:00 CONCLUSION: 1. The previously noted bibasilar consolidation has improved. There is mild residual opacity in the anterior lingula which may represent mild scarring or atelectasis. 2. Coronary artery calcifications are again noted. Chest X-Ray 03/04/18 00:48 CONCLUSION: No acute cardiopulmonary process. Discharge Plan - Discharge Disposition Patient Disposition: Discharge Home - Discharge Condition Condition: Stable - Discharge Order Discharge Orders: Discharge Order (Routine); Ordered 03/06/18 Ordered By: Bhargavi Rainey - Discharge Details Anticipated Discharge Date: 03/06/18 - Physicians Team Primary Care Provider: [facility] [place] Attending Provider: Alden Diop Other Providers: Chicho Moreno MD
[2018-03-06] MEDS ORDERED: levoFLOXacin 750 MG Tablet PO ONE (11:15)
[2018-03-06] MEDS ORDERED: predniSONE 20 MG Tablet PO ONE (11:15)
== END 2018-03-06 13:14 | disposition home or self-care (01) ==
LOC: PHED 00:45 → PHEDA 02:50 → PHICU 03:58 → PH3 03-05 18:30
PROVIDERS: ADMIT Hospitalist; ATTEND Hospitalist